=== PATIENT | female | born 2000 | race American Indian/Alaskan Native ===

== ENCOUNTER 2018-11-09 13:59 | Outpatient (CLI) | payer MEDICAID, OTHER ==
[2018-11-09 14:19] VITALS: BP 110/62
[2018-11-09 14:27] LABS: Bacteria,Urine 1+ /HPF (Negative); Bilirubin,Urine NEG (Negative); Blood,Urine NEG (Negative); Color,Urine Yellow (Yellow); Mucus,Urine 2+ /HPF; Urobilinogen,Urine < 2.0 mg/dL (<2.0); WBC,Urine < 1.0 /HPF (0.0-6.0)
[2018-11-09 15:41] LABS: Amphetamine Screen,Urine PRESUMPTIVE NEGATIVE; Benzodiazepines Screen,Urine PRESUMPTIVE NEGATIVE; Cannabinoid Screen,Urine PRESUMPTIVE NEGATIVE; Cocaine Screen,Urine PRESUMPTIVE NEGATIVE; Methadone Screen,Urine PRESUMPTIVE NEGATIVE; Opiate Screen,Urine PRESUMPTIVE NEGATIVE
== END 2018-11-09 16:10 | disposition home or self-care (01) ==
LOC: TRG 13:59
PROVIDERS: ATTEND Obstetrics & Gynecology
DX: O47.02 False labor before 37 completed weeks of gestation, second trimester (principal); Z3A.27 27 weeks gestation of pregnancy
CPT/HCPCS: 59025; 80307; 81001

== ENCOUNTER 2019-01-23 13:43 | Inpatient (IN) | payer MEDICAID ==
[2019-01-23 14:52] LABS: Hemoglobin 9.7 gm/dl (10.1-14.3); Mean Corpuscular HGB Conc 33 % (30-34); Mean Corpuscular Volume 76 fl (79-97); Platelet Count 330 K/mm3 (140-440); Red Blood Count 3.81 M/mm3 (3.65-5.03); Red Cell Distribution Width 15.9 % (13.2-15.2)
[2019-01-23] MEDS ORDERED: AMPICILLIN 2 GM in NACL 0.9% 50 ML IV ONE (15:00)
[2019-01-23] MEDS ORDERED: AMPICILLIN/NS 2 GM/100 ML 2 GM/100 ML BAG IV ONE ×2 (15:00→15:54)
[2019-01-23] MEDS: LACTATED RINGERS 1,000 ML IV SCH ×2 (15:13→21:19)
[2019-01-23] MEDS: PITOCin/NS 30 UNIT/500ML 30 UNITS/500 ML BAG IV SCH ×4 (15:15→23:25)
[2019-01-23] MEDS ORDERED: MINERAL OIL PO PRN (15:54)
[2019-01-23] MEDS ORDERED: ZOFRAN IV PRN (15:54)
[2019-01-23] MEDS ORDERED: SUBLIMAZE IV PRN (15:54)
[2019-01-23] MEDS ORDERED: BRETHINE SUB-Q PRN (15:54)
[2019-01-23] MEDS ORDERED: NARCAN 0.4 MG/1 ML IV PRN (15:54)
[2019-01-23] MEDS ORDERED: BRETHINE IVP PRN (15:54)
[2019-01-23] MEDS ORDERED: PITOCin/NS 20 UNIT/1000ML DRIP 20 UNITS/1,000 ML BAG IV SCH (16:00)
[2019-01-23] MEDS: STADOL IV PRN ×2 (16:05→18:19)
[2019-01-23] MEDS ORDERED: AMPICILLIN/NS 1 GM/50 ML 1 GM/50 ML BAG IV SCH (19:56)
[2019-01-23] MEDS: AMPICILLIN/NS 1 GM/50 ML 1 GM/50 ML BAG IV SCH (20:16)
[2019-01-23] MEDS ORDERED: NARCAN 2 MG/2 ML IV PRN (21:29)
--- NOTE | 2019-01-23 21:30 | Anesthesia Consultation ---
Anesthesia Consult and Med Hx Date of service: 01/23/19 - Airway Anesthetic Teeth Evaluation: Good ROM Head & Neck: Adequate Mental/Hyoid Distance: Adequate Mallampati Class: Class II Intubation Access Assessment: Good - Pulmonary Exam CTA: Yes - Cardiac Exam Cardiac Exam: RRR - Pre-Operative Health Status ASA Pre-Surgery Classification: ASA2, Emergency Proposed Anesthetic Plan: Epidural - Pulmonary Hx Asthma: No COPD: No Hx Pneumonia: No - Cardiovascular System Hx Hypertension: No - Central Nervous System Hx Seizures: No Hx Psychiatric Problems: No - Endocrine Hx Renal Disease: No Hx End Stage Renal Disease: No Hx Hypothyroidism: No Hx Hyperthyroidism: No - Hematic Hx Anemia: No Hx Sickle Cell Disease: No - Other Systems Hx Alcohol Use: No
[2019-01-23] MEDS ORDERED: TYLENOL PO ONE (22:05)
--- NOTE | 2019-01-23 22:39 | History and Physical Report ---
History of Present Illness Date of examination: 01/23/19 Date of admission: 01/23/19 13:43 Chief complaint: my water broke History of present illness: Pt is a 18 year old primigravida CHANEL 02/05/19 at 38w1d who presents with c/o water leaking since 1244 pm. She reports irregular contractions and denies vaginal bleeding. She has had care at [facility] which she reports is uncomplicated but records are not available for review. Her GBS status is unknown. Past History Past Medical History: no pertinent history Past Surgical History: no surgical history Social history: no significant social history - Obstetrical History Expected Date of Delivery: 02/05/19 Actual Gestation: 38 Week(s) 1 Day(s) : 1 Medications and Allergies Allergies Allergy/AdvReac Type Severity Reaction Status Date / Time No Known Allergies Allergy Unverified 04/18/14 23:10 Home Medications Medication Instructions Recorded Confirmed Last Taken Type No Known Home Medications [No 11/09/18 11/09/18 Unknown History Reported Home Medications] Active Meds: Active Medications Butorphanol Tartrate (Stadol) 2 mg IV Q2H PRN PRN Reason: Pain , Severe (7-10) Last Admin: 01/23/19 18:19 Dose: 2 mg Documented by: Ephedrine Sulfate (Ephedrine Sulfate) 10 mg IV Q2M PRN PRN Reason: Hypotension Fentanyl (Sublimaze) 100 mcg IV Q2H PRN PRN Reason: Labor Pain Last Admin: 01/23/19 19:58 Dose: 100 mcg Documented by: Ampicillin Sodium (Ampicillin/Ns 1 Gm/50 Ml) 1 gm in 50 mls @ 100 mls/hr IV Q4H CUCA Last Admin: 01/23/19 20:16 Dose: 100 mls/hr Documented by: Lactated Ringer's (Lactated Ringers) 1,000 mls @ 125 mls/hr IV DIRECT CUAC Last Admin: 01/23/19 21:19 Dose: 1,200 mls/hr Documented by: Oxytocin/Sodium Chloride (Pitocin/Ns 30 Unit/500ml) 30 units in 500 mls @ 2 mls/hr IV TITR CUCA; Protocol Last Admin: 01/23/19 20:21 Dose: 14 ml/hr, 14 mls/hr Documented by: Oxytocin/Sodium Chloride (Pitocin/Ns 20 Unit/1000ml Drip) 20 units in 1,000 mls @ 125 mls/hr IV DIRECT CUCA Fentanyl/Bupivacaine/Sodium Chlor (Fentanyl-Bupiv 2 Mcg/Ml-0.125%) 200 mcg in 100 mls @ 12 mls/hr EPIDURAL TITR CUCA; Protocol Mineral Oil (Mineral Oil) 30 ml PO QHS PRN PRN Reason: Constipation Naloxone HCl (Narcan 2 Mg/2 Ml) 0.2 mg IV Q5M PRN PRN Reason: Respiratory sedation Ondansetron HCl (Zofran) 4 mg IV Q8H PRN PRN Reason: Nausea And Vomiting Sodium Chloride (Deep Sea) 2 spray NS QID CUCA Terbutaline Sulfate (Brethine) 0.25 mg SUB-Q ONCE PRN PRN Reason: Hyperstimulation/Hypertonicity Terbutaline Sulfate (Brethine) 0.25 mg IVP ONCE PRN PRN Reason: Hyperstimulation/Hypertonicity Review of Systems All systems: negative - Vital Signs Vital signs: Vital Signs Pulse BP 102 H 135/87 01/23/19 14:00 01/23/19 14:00 Temp Pulse Resp BP Pulse Ox 98.4 F 76 16 119/71 100 01/23/19 19:30 01/23/19 22:31 01/23/19 19:58 01/23/19 22:31 01/23/19 22:31 - Physical Exam Breasts: Positive: deferred Cardiovascular: Regular rate Lungs: Positive: Clear to auscultation Abdomen: Positive: soft (gravid ) Uterus: Positive: enlarged (gravid ) Extremities: Positive: normal - Obstetrical FHR: auscultation normal Uterine Contraction Monitor Mode: External Cervical Dilatation: 1.5 (per RN ) Results Result Diagrams: 01/23/19 14:39 Abnormal lab results 01/23/19 Range/Units 14:39 Hgb 9.7 L (10.1-14.3) gm/dl Hct 29.0 L (30.3-42.9) % MCV 76 L (79-97) fl MCH 25 L (28-32) pg RDW 15.9 H (13.2-15.2) % All other labs normal. Assessment and Plan A: IUP at 38w6d Premature rupture of membranes GBS unknown P: Admit to labor and delivery CBC, HIV, RPR, Type and Screen GBS prophylaxis Routine intrapartum care
[2019-01-23] MEDS: fentaNYL-BUPIV 2 MCG/ML-0.125% 200 MCG/100 ML BAG EPIDURAL SCH (22:46)
[2019-01-24] MEDS: AMPICILLIN/NS 1 GM/50 ML 1 GM/50 ML BAG IV SCH ×5 (00:50→16:58)
[2019-01-24] MEDS: fentaNYL-BUPIV 2 MCG/ML-0.125% 200 MCG/100 ML BAG EPIDURAL SCH ×2 (07:18→16:59)
--- NOTE | 2019-01-24 07:45 | Progress Note ---
Assessment and Plan A: IUP at 39 weeks Premature rupture of membranes GBS unknown P: Admit to labor and delivery Re initiate pitocin continue GBS prolphylaxis close monitor of maternal and status Subjective - Subjective Date of service: 01/24/19 Principal diagnosis: SROM at 38 weeks Patient reports: loss of fluid, movement normal, contractions, no new complaints, no vaginal bleeding Objective - Vital Signs Vital Signs: Vital Signs - 12hr 01/23/19 01/23/19 01/23/19 19:48 19:58 20:18 Pulse Rate 97 H 80 Respiratory 16 Rate Blood Pressure 141/96 148/87 O2 Sat by Pulse Oximetry 01/23/19 01/23/19 01/23/19 20:23 20:34 21:03 Pulse Rate 85 81 126 H Respiratory Rate Blood Pressure 138/72 138/95 207/96 O2 Sat by Pulse Oximetry 01/23/19 01/23/19 01/23/19 21:18 21:22 21:27 Pulse Rate 79 96 H 80 Respiratory Rate Blood Pressure 134/75 O2 Sat by Pulse 100 99 Oximetry 01/23/19 01/23/19 01/23/19 21:32 21:37 21:43 Pulse Rate 85 101 H 92 H Respiratory Rate Blood Pressure 131/75 O2 Sat by Pulse 98 100 98 Oximetry 01/23/19 01/23/19 01/23/19 21:48 21:49 21:51 Pulse Rate 93 H 93 H 101 H Respiratory Rate Blood Pressure 152/108 O2 Sat by Pulse 100 90 Oximetry 01/23/19 01/23/19 01/23/19 21:53 21:55 21:57 Pulse Rate 92 H 96 H 89 Respiratory Rate Blood Pressure 126/79 121/70 131/69 O2 Sat by Pulse Oximetry 01/23/19 01/23/19 01/23/19 21:59 22:00 22:01 Pulse Rate 87 67 84 Respiratory Rate Blood Pressure 140/77 119/74 O2 Sat by Pulse 99 Oximetry 01/23/19 01/23/19 01/23/19 22:03 22:05 22:06 Pulse Rate 77 88 81 Respiratory Rate Blood Pressure 117/62 130/63 119/60 O2 Sat by Pulse 99 Oximetry 01/23/19 01/23/19 01/23/19 22:08 22:10 22:11 Pulse Rate 77 86 83 Respiratory Rate Blood Pressure 121/60 124/65 O2 Sat by Pulse 99 Oximetry 01/23/19 01/23/19 01/23/19 22:16 22:19 22:21 Pulse Rate 81 81 79 Respiratory Rate Blood Pressure 117/57 118/60 O2 Sat by Pulse 100 99 Oximetry 01/23/19 01/23/19 01/23/19 22:22 22:25 22:26 Pulse Rate 80 79 Respiratory Rate Blood Pressure 122/66 117/72 O2 Sat by Pulse 98 Oximetry 01/23/19 01/23/19 01/23/19 22:27 22:29 22:31 Pulse Rate 78 81 76 Respiratory Rate Blood Pressure 132/70 124/77 119/71 O2 Sat by Pulse 100 Oximetry 01/23/19 01/23/19 01/23/19 22:35 22:36 22:39 Pulse Rate 77 80 74 Respiratory Rate Blood Pressure 122/75 134/72 132/73 O2 Sat by Pulse 99 Oximetry 01/23/19 01/23/19 01/23/19 22:41 22:43 22:45 Pulse Rate 76 81 Respiratory Rate Blood Pressure 136/67 136/65 123/79 O2 Sat by Pulse 100 Oximetry 01/23/19 01/23/19 01/23/19 22:46 22:47 22:48 Pulse Rate 75 79 81 Respiratory Rate Blood Pressure 139/73 138/78 O2 Sat by Pulse 98 Oximetry 01/23/19 01/23/19 01/23/19 22:51 22:53 22:56 Pulse Rate 81 65 80 Respiratory Rate Blood Pressure O2 Sat by Pulse 100 88 99 Oximetry 01/23/19 01/23/19 01/23/19 22:57 22:59 23:01 Pulse Rate 82 81 82 Respiratory Rate Blood Pressure 127/70 143/78 145/66 O2 Sat by Pulse 100 Oximetry 01/23/19 01/23/19 01/23/19 23:03 23:05 23:06 Pulse Rate 78 76 78 Respiratory Rate Blood Pressure 119/70 131/67 132/68 O2 Sat by Pulse 99 Oximetry 01/23/19 01/23/19 01/23/19 23:08 23:11 23:12 Pulse Rate 81 75 81 Respiratory Rate Blood Pressure 136/75 134/74 134/86 O2 Sat by Pulse 99 Oximetry 01/23/19 01/23/19 01/23/19 23:16 23:17 23:21 Pulse Rate 66 69 75 Respiratory Rate Blood Pressure 121/61 O2 Sat by Pulse 99 86 99 Oximetry 01/23/19 01/23/19 01/23/19 23:23 23:24 23:26 Pulse Rate 74 69 78 Respiratory Rate Blood Pressure 128/65 129/69 133/79 O2 Sat by Pulse 99 Oximetry 01/23/19 01/23/19 01/23/19 23:28 23:30 23:31 Pulse Rate 74 77 74 Respiratory Rate Blood Pressure 133/78 133/76 O2 Sat by Pulse 99 Oximetry 01/23/19 01/23/19 01/23/19 23:32 23:35 23:36 Pulse Rate 75 76 73 Respiratory Rate Blood Pressure 135/80 128/72 133/76 O2 Sat by Pulse 99 Oximetry 01/23/19 01/23/19 01/23/19 23:38 23:40 23:41 Pulse Rate 76 79 78 Respiratory Rate Blood Pressure 136/79 139/79 O2 Sat by Pulse 99 Oximetry 01/23/19 01/23/19 01/23/19 23:43 23:45 23:46 Pulse Rate 66 64 60 Respiratory Rate Blood Pressure 109/55 126/81 O2 Sat by Pulse 100 Oximetry 01/23/19 01/23/19 01/23/19 23:47 23:48 23:51 Pulse Rate 65 67 64 Respiratory Rate Blood Pressure 123/66 128/73 116/66 O2 Sat by Pulse 100 Oximetry 01/23/19 01/23/19 01/23/19 23:52 23:54 23:56 Pulse Rate 64 69 64 Respiratory Rate Blood Pressure 122/72 120/68 121/71 O2 Sat by Pulse 98 Oximetry 01/23/19 01/24/19 01/24/19 23:58 00:01 00:03 Pulse Rate 70 62 63 Respiratory Rate Blood Pressure 125/78 123/84 129/72 O2 Sat by Pulse 100 Oximetry 01/24/19 01/24/19 01/24/19 00:04 00:07 00:11 Pulse Rate 69 63 66 Respiratory Rate Blood Pressure 133/72 133/65 100/59 O2 Sat by Pulse 99 75 L Oximetry 01/24/19 01/24/19 01/24/19 00:12 00:13 00:17 Pulse Rate 61 58 L 72 Respiratory Rate Blood Pressure 88/58 O2 Sat by Pulse 100 100 Oximetry 01/24/19 01/24/19 01/24/19 00:19 00:20 00:22 Pulse Rate 81 77 76 Respiratory Rate Blood Pressure 107/60 110/57 113/61 O2 Sat by Pulse 100 Oximetry 01/24/19 01/24/19 01/24/19 00:24 00:26 00:27 Pulse Rate 78 76 82 Respiratory Rate Blood Pressure 118/58 115/70 O2 Sat by Pulse 100 Oximetry 01/24/19 01/24/19 01/24/19 00:29 00:30 00:32 Pulse Rate 79 83 81 Respiratory Rate Blood Pressure 121/61 121/63 115/61 O2 Sat by Pulse 100 Oximetry 01/24/19 01/24/19 01/24/19 00:35 00:37 00:38 Pulse Rate 85 85 88 Respiratory Rate Blood Pressure 132/60 115/67 114/66 O2 Sat by Pulse 100 Oximetry 01/24/19 01/24/19 01/24/19 00:40 00:42 00:45 Pulse Rate 82 93 H 88 Respiratory Rate Blood Pressure 121/64 123/58 129/62 O2 Sat by Pulse 100 Oximetry 01/24/19 01/24/19 01/24/19 00:46 00:47 00:49 Pulse Rate 79 89 88 Respiratory Rate Blood Pressure 127/63 123/58 O2 Sat by Pulse 100 Oximetry 01/24/19 01/24/19 01/24/19 00:51 00:52 00:54 Pulse Rate 94 H 90 97 H Respiratory Rate Blood Pressure 134/61 127/57 123/59 O2 Sat by Pulse 100 Oximetry 01/24/19 01/24/19 01/24/19 00:57 00:58 01:00 Pulse Rate 108 H 97 H 109 H Respiratory Rate Blood Pressure 126/59 123/57 124/58 O2 Sat by Pulse 100 Oximetry 01/24/19 01/24/19 01/24/19 01:02 01:03 01:07 Pulse Rate 102 H 118 H 106 H Respiratory Rate Blood Pressure O2 Sat by Pulse 100 82 L 100 Oximetry 01/24/19 01/24/19 01/24/19 01:09 01:11 01:12 Pulse Rate 109 H 99 H 106 H Respiratory Rate Blood Pressure 125/66 126/57 O2 Sat by Pulse 100 Oximetry 01/24/19 01/24/19 01/24/19 01:13 01:15 01:17 Pulse Rate 110 H 104 H 110 H Respiratory Rate Blood Pressure 114/57 100/54 95/59 O2 Sat by Pulse 98 Oximetry 01/24/19 01/24/19 01/24/19 01:19 01:21 01:22 Pulse Rate 104 H 105 H 104 H Respiratory Rate Blood Pressure 129/62 113/58 114/61 O2 Sat by Pulse 99 Oximetry 01/24/19 01/24/19 01/24/19 01:24 01:27 01:28 Pulse Rate 100 H 107 H 106 H Respiratory Rate Blood Pressure 120/69 113/61 113/58 O2 Sat by Pulse 100 Oximetry 01/24/19 01/24/19 01/24/19 01:30 01:32 01:34 Pulse Rate 96 H 106 H 102 H Respiratory Rate Blood Pressure 124/62 128/62 127/60 O2 Sat by Pulse 99 Oximetry 01/24/19 01/24/19 01/24/19 01:36 01:37 01:38 Pulse Rate 98 H 97 H 93 H Respiratory Rate Blood Pressure 122/58 124/60 O2 Sat by Pulse 100 Oximetry 01/24/19 01/24/19 01/24/19 01:40 01:42 01:44 Pulse Rate 102 H 98 H 95 H Respiratory Rate Blood Pressure 121/55 122/58 130/60 O2 Sat by Pulse 100 Oximetry 01/24/19 01/24/19 01/24/19 01:46 01:47 01:48 Pulse Rate 102 H 97 H 100 H Respiratory Rate Blood Pressure 123/58 132/60 O2 Sat by Pulse 100 Oximetry 01/24/19 01/24/19 01/24/19 01:50 01:52 01:55 Pulse Rate 96 H 95 H 100 H Respiratory Rate Blood Pressure 130/58 128/59 121/58 O2 Sat by Pulse 100 Oximetry 01/24/19 01/24/19 01/24/19 01:56 01:57 01:58 Pulse Rate 100 H 104 H 96 H Respiratory Rate Blood Pressure 122/58 121/60 O2 Sat by Pulse 100 Oximetry 01/24/19 01/24/19 01/24/19 02:00 02:02 02:04 Pulse Rate 96 H 101 H 94 H Respiratory Rate Blood Pressure 120/62 122/64 128/61 O2 Sat by Pulse 99 Oximetry 01/24/19 01/24/19 01/24/19 02:06 02:07 02:08 Pulse Rate 93 H 94 H 96 H Respiratory Rate Blood Pressure 126/60 125/59 O2 Sat by Pulse 100 Oximetry 01/24/19 01/24/19 01/24/19 02:10 02:12 02:14 Pulse Rate 112 H 98 H 98 H Respiratory Rate Blood Pressure 129/67 130/64 128/64 O2 Sat by Pulse 100 Oximetry 01/24/19 01/24/19 01/24/19 02:16 02:17 02:18 Pulse Rate 98 H 97 H 100 H Respiratory Rate Blood Pressure 131/65 126/59 O2 Sat by Pulse 100 Oximetry 01/24/19 01/24/19 01/24/19 02:20 02:22 02:24 Pulse Rate 90 96 H 93 H Respiratory Rate Blood Pressure 126/66 124/64 125/62 O2 Sat by Pulse 98 Oximetry 01/24/19 01/24/19 01/24/19 02:26 02:27 02:28 Pulse Rate 91 H 87 94 H Respiratory Rate Blood Pressure 127/63 132/66 O2 Sat by Pulse 99 Oximetry 01/24/19 01/24/19 01/24/19 02:30 02:32 02:35 Pulse Rate 96 H 94 H Respiratory Rate Blood Pressure 121/62 121/62 121/65 O2 Sat by Pulse 99 Oximetry 01/24/19 01/24/19 01/24/19 02:37 02:39 02:41 Pulse Rate 105 H 98 H 94 H Respiratory Rate Blood Pressure 122/69 120/69 125/65 O2 Sat by Pulse 99 Oximetry 01/24/19 01/24/19 01/24/19 02:42 02:44 02:46 Pulse Rate 88 90 95 H Respiratory Rate Blood Pressure 126/73 125/60 129/67 O2 Sat by Pulse 98 Oximetry 01/24/19 01/24/19 01/24/19 02:47 02:48 02:50 Pulse Rate 91 H 85 88 Respiratory Rate Blood Pressure 128/69 131/67 O2 Sat by Pulse 99 Oximetry 01/24/19 01/24/19 01/24/19 02:52 02:57 03:02 Pulse Rate 100 H 91 H 89 Respiratory Rate Blood Pressure O2 Sat by Pulse 99 98 98 Oximetry 01/24/19 01/24/19 01/24/19 03:07 03:08 03:12 Pulse Rate 84 87 87 Respiratory Rate Blood Pressure 123/67 O2 Sat by Pulse 98 98 Oximetry 01/24/19 01/24/19 01/24/19 03:17 03:22 03:27 Pulse Rate 91 H 89 88 Respiratory Rate Blood Pressure 121/66 O2 Sat by Pulse 98 99 98 Oximetry 01/24/19 01/24/19 01/24/19 03:32 03:37 03:42 Pulse Rate 89 92 H 87 Respiratory Rate Blood Pressure 133/72 O2 Sat by Pulse 98 98 98 Oximetry 01/24/19 01/24/19 01/24/19 03:47 03:52 03:54 Pulse Rate 86 89 92 H Respiratory Rate Blood Pressure 124/78 O2 Sat by Pulse 98 98 Oximetry 01/24/19 01/24/19 01/24/19 03:57 04:02 04:07 Pulse Rate 89 83 83 Respiratory Rate Blood Pressure 127/75 O2 Sat by Pulse 99 99 99 Oximetry 01/24/19 01/24/19 01/24/19 04:12 04:17 04:22 Pulse Rate 80 80 84 Respiratory Rate Blood Pressure 134/73 O2 Sat by Pulse 100 100 100 Oximetry 01/24/19 01/24/19 01/24/19 04:27 04:32 04:37 Pulse Rate 82 80 83 Respiratory Rate Blood Pressure 135/78 O2 Sat by Pulse 99 100 99 Oximetry 01/24/19 01/24/19 01/24/19 04:42 04:47 04:52 Pulse Rate 82 79 82 Respiratory Rate Blood Pressure O2 Sat by Pulse 99 100 100 Oximetry 01/24/19 01/24/19 01/24/19 04:53 04:57 05:02 Pulse Rate 81 87 82 Respiratory Rate Blood Pressure 137/81 O2 Sat by Pulse 100 100 Oximetry 01/24/19 01/24/19 01/24/19 05:07 05:09 05:12 Pulse Rate 85 82 83 Respiratory Rate Blood Pressure 137/82 O2 Sat by Pulse 100 99 Oximetry 01/24/19 01/24/19 01/24/19 05:17 05:22 05:27 Pulse Rate 85 83 83 Respiratory Rate Blood Pressure 135/82 O2 Sat by Pulse 100 100 100 Oximetry 01/24/19 01/24/1901/24/19 05:32 05:37 05:42 Pulse Rate 86 81 84 Respiratory Rate Blood Pressure 138/84 O2 Sat by Pulse 99 99 99 Oximetry 01/24/19 01/24/19 01/24/19 05:47 05:52 05:57 Pulse Rate 81 82 79 Respiratory Rate Blood Pressure 133/80 O2 Sat by Pulse 99 99 98 Oximetry 01/24/19 01/24/19 01/24/19 06:02 06:07 06:12 Pulse Rate 83 91 H 98 H Respiratory Rate Blood Pressure 122/72 O2 Sat by Pulse 99 98 99 Oximetry 01/24/19 01/24/19 01/24/19 06:17 06:22 06:27 Pulse Rate 80 97 H 89 Respiratory Rate Blood Pressure 120/69 O2 Sat by Pulse 99 100 99 Oximetry 01/24/19 01/24/19 01/24/19 06:32 06:37 06:42 Pulse Rate 91 H 92 H 89 Respiratory Rate Blood Pressure 125/74 O2 Sat by Pulse 100 100 100 Oximetry 01/24/19 01/24/19 01/24/19 06:47 06:52 06:57 Pulse Rate 95 H 87 93 H Respiratory Rate Blood Pressure 136/80 O2 Sat by Pulse 100 100 99 Oximetry 01/24/19 01/24/19 01/24/19 07:02 07:07 07:12 Pulse Rate 89 89 100 H Respiratory Rate Blood Pressure 126/77 O2 Sat by Pulse 99 100 100 Oximetry 01/24/19 01/24/19 01/24/19 07:17 07:22 07:27 Pulse Rate 90 83 90 Respiratory Rate Blood Pressure 137/81 O2 Sat by Pulse 99 100 100 Oximetry 01/24/19 01/24/19 07:32 07:37 Pulse Rate 86 91 H Respiratory Rate Blood Pressure 126/74 O2 Sat by Pulse 100 100 Oximetry - Exam Breasts: normal Cardiovascular: Regular rate, Normal S1 Lungs: Clear to auscultation, Normal air movement Abdomen: Present: normal appearance, soft, normal bowel sounds. Absent: distention, tenderness, guarding Uterus: Present: normal, firm, fundal height above umbilicus. Absent: bogginess, tenderness FHR: category 1 Cervical Dilatation: 2 Cervical Effacement Percentage: 50 - Labs Labs: Abnormal Labs 01/23/19 14:39 Hgb 9.7 L Hct 29.0 L MCV 76 L MCH 25 L RDW 15.9 H Laboratory Results - last 24 hr 01/23/19 01/23/19 14:39 14:39 WBC 9.2 RBC 3.81 Hgb 9.7 L Hct 29.0 L MCV 76 L MCH 25 L MCHC 33 RDW 15.9 H Plt Count 330 HIV 1&2 Antibody Rapid Non react HIV P24 Antigen Non react Blood Type O POSITIVE Antibody Screen Negative
[2019-01-24] MEDS: PITOCin/NS 30 UNIT/500ML 30 UNITS/500 ML BAG IV SCH (08:33)
[2019-01-24] MEDS ORDERED: DEEP SEA NS SCH (10:00)
[2019-01-24] MEDS ORDERED: MARCAINE 0.25% INFILTRATI ONE (13:17)
[2019-01-24] MEDS: LACTATED RINGERS 1,000 ML IV SCH (14:48)
[2019-01-24] MEDS ORDERED: TYLENOL PO ONE (17:11)
--- NOTE | 2019-01-24 19:07 | Event Note ---
Date: 01/24/19 Patient was reassessed and noted that cervix changed from 1/100/-2 to 2/80/high with coning of baby head. Patient has been vamsi q2-3 min without change. Discussed option with patient and she deires to proceed with primary csec.
[2019-01-24] MEDS ORDERED: PEPCID IV ONE (19:14)
[2019-01-24] MEDS ORDERED: BICITRA PO ONE (19:14)
[2019-01-24] MEDS ORDERED: REGLAN IV ONE (19:14)
[2019-01-24] MEDS ORDERED: CYTOTEC PR ONE (19:15)
[2019-01-24] MEDS ORDERED: XYLOCAINE 2%/ EPI 1:200,000 INFILTRATI ONE (19:21)
[2019-01-24] MEDS ORDERED: REGLAN ONE (19:22)
[2019-01-24] MEDS ORDERED: BICITRA ONE (19:22)
[2019-01-24] MEDS ORDERED: ZOFRAN ONE (19:25)
[2019-01-24] MEDS ORDERED: DEXMEDETOMIDINE IV ONE (19:25)
[2019-01-24] MEDS ORDERED: NACL 0.9% IR ONE (19:40)
[2019-01-24] MEDS ORDERED: WATER FOR IRRIG STERILE IR ONE (19:40)
[2019-01-24] MEDS ORDERED: LACTATED RINGERS 1,000 ML IV SCH (20:00)
[2019-01-24] MEDS ORDERED: PITOCin/NS 20 UNIT/1000ML DRIP 20 UNITS/1,000 ML BAG IV SCH (20:00)
[2019-01-24] MEDS ORDERED: ANCEF/STERILE WATER 2 GM/20 ML 2 GM/20 ML SYRINGE IV NR (20:00)
[2019-01-24] MEDS ORDERED: BENADRYL ONE (20:05)
[2019-01-24] MEDS ORDERED: TORADOL ONE (20:05)
[2019-01-24] MEDS ORDERED: DILAUDID ONE (20:36)
[2019-01-24] MEDS ORDERED: PHENERGAN PR PRN ×2 (20:37→20:51)
[2019-01-24] MEDS ORDERED: MILK OF MAGNESIA PO PRN (20:37)
[2019-01-24] MEDS ORDERED: TUCKS PAD TP PRN (20:37)
[2019-01-24] MEDS ORDERED: LANSINOH TP PRN (20:37)
[2019-01-24] MEDS ORDERED: MYLICON PO PRN (20:37)
[2019-01-24] MEDS ORDERED: SENOKOT PO PRN (20:37)
[2019-01-24] MEDS ORDERED: NARCAN 0.4 MG/1 ML IV PRN ×2 (20:37→20:51)
[2019-01-24] MEDS ORDERED: MORPHINE IV PRN (20:37)
[2019-01-24] MEDS ORDERED: TORADOL IV PRN (20:37)
--- NOTE | 2019-01-24 20:44 | Procedure Note ---
OB Delivery Note - Delivery Date of Delivery: 01/24/19 Surgeon: NADIA GARCES Estimated blood loss: other (400cc) - Vaginal Delivery presentation: vertex - Section Preop diagnosis: arrest of dilation, other (Failure to progress) Postop diagnosis: same section procedure: section Disposition: PACU Complications: none Narrative: see op note - Infant A at 1 minute: 8 at 5 minutes: 9 Infant Gender: Female
--- NOTE | 2019-01-24 20:49 | Operative Report ---
Operative Report Operative Report: PREOPERATIVE DIAGNOSES: 1. Intrauterine at term. 2. Arrest of dilation. 3. Failure of progress to labor POSTOPERATIVE DIAGNOSES: 1.-3 EGVENY PROCEDURE PERFORMED: Primary low-transverse section. ANESTHESIA: Epidural. ESTIMATED BLOOD LOSS: 400 mL. COMPLICATIONS: None. FINDINGS: Female infant in cephalic presentation, OP position, weight 5 pounds 14 ounces. Apgars were 8 at 1 minute and 9 at 5 minutes. Normal uterus, tubes, and ovaries were noted. INDICATIONS: The patient is a 18-year-old 1, para 0 female, who presented to labor and delivery with PROM and in early active labor at term. She is a patient of [facility]. Despite pitocin no change in cervix went from 1 to 2 and cervix began swelling. . The patient progressed to 8 cm, at which time, Pi tocin was started. . A decision was made to proceed with a primary low transverse section. The procedure was described to the patient in detail including possible risks of bleeding, infection, injury to surrounding organs, and possible need for further surgery. Informed consent was obtained prior to proceeding with the procedure. PROCEDURE NOTE: The patient was taken to the operating room where epidural anesthesia was found to be adequate. The patient was prepped and draped in the usual sterile fashion in the dorsal supine position with a left-tuttle tilt. A Pfannenstiel skin incision was made with the scalpel and carried through to the underlying layer of fascia using the Bovie. The fascia was incised in the midline and extended laterally using Starr scissors. Fidel clamps were used to elevate the superior aspect of the fascial incision, which was elevated, and the underlying rectus muscles were dissected off bluntly and using Starr scissors. Attention was then turned to the inferior aspect of the fascial incision, which in similar fashion was grasped with Fidel clamps, elevated, and the underlying rectus muscles were dissected off bluntly and using Starr scissors. The rectus muscles were dissected in the midline. The peritoneum was bluntly dissected, entered, and extended superiorly and inferiorly with good visualization of the bladder. The bladder blade was inserted. The vesicouterine peritoneum was identified with pickups and entered sharply using Metzenbaum scissors. This incision was extended laterally and the bladder flap was created digitally. The bladder blade was reinserted. The lower uterine segment was incised in a transverse fashion using the scalpel and extended using manual traction. Clear fluid was noted. The was subsequently delivered atraumatically. The nose and mouth were bulb suctioned. The cord was clamped and cut. The infant was subsequently handed to the awaiting nursery nurse. Next, cord blood was obtained per the patient's request for cord blood donation, which took several minutes to perform. Subsequent to the collection of this blood, the placenta was removed spontaneously intact with a 3-vessel cord noted. The uterus was exteriorized and cleared of all clots and debris. The uterine incision was repaired in 2 layers using 0 vicryl suture. Hemostasis was visualized. The uterus was returned to the abdomen. The pelvis was copiously irrigated. The uterine incision was reexamined and was noted to be hemostatic. The rectus muscles were reapproximated in the midline using 3-0 Vicryl. The fascia was closed with 0 PDS, the subcutaneous layer was closed with 3-0 plain gut, and the skin was closed with Abdirashid needle. Sponge, lap, and instrument counts were correct x2. The patient was stable at the completion of the procedure and was subsequently transferred to the recovery room in stable condition.
[2019-01-24] MEDS ORDERED: DILAUDID IV PRN ×2 (20:51)
[2019-01-24] MEDS ORDERED: PHENERGAN PO PRN (20:51)
[2019-01-24] MEDS ORDERED: ZOFRAN IV PRN (20:51)
--- NOTE | 2019-01-24 20:54 | Post Anesthesia Evaluation ---
- Post Anesthesia Evaluation Patient Participated: Yes Airway Patent: Yes Stable Respiratory Function: Yes Nausea/Vomiting: No Temp > 96.8F: Yes Pain Manageable: Yes Adequeate Hydration: Yes Anesthesia Complications: No Block Receding Appropriately: Yes Patient on Ventilator: No
--- NOTE | 2019-01-24 20:54 | Anesthesia Day of Surgery ---
Anesthesia Day of Surgery - Day of Surgery Patient Examined: Yes Patient H&P Reviewed: Yes Patient is NPO: Yes
[2019-01-24] MEDS ORDERED: SODIUM CHLORIDE FLUSH SYRINGE 10 ML IV NR (21:00)
[2019-01-24] MEDS ORDERED: FEOSOL PO SCH (21:00)
[2019-01-24] MEDS ORDERED: SODIUM CHLORIDE FLUSH SYRINGE 10 ML IV PRN (21:00)
[2019-01-24] MEDS: PITOCin/NS 20 UNIT/1000ML DRIP 20 UNITS/1,000 ML BAG IV SCH ×2 (21:23→21:24)
[2019-01-24] MEDS: MORPHINE IV PRN (23:01)
[2019-01-25 01:27] LABS: Basophils # (Auto) 0.1 K/mm3 (0.0-0.1); Basophils % (Auto) 0.6 % (0.0-1.8); Hematocrit 28.9 % (30.3-42.9); Hemoglobin 8.9 gm/dl (10.1-14.3); Lymphocytes # (Auto) 1.8 K/mm3 (1.2-5.4); Lymphocytes % (Auto) 11.7 % (13.4-35.0); Mean Corpuscular HGB Conc 31 % (30-34); Mean Corpuscular Volume 79 fl (79-97); Monocytes # (Auto) 0.7 K/mm3 (0.0-0.8); Monocytes % (Auto) 4.7 % (0.0-7.3); Red Blood Count 3.68 M/mm3 (3.65-5.03)
[2019-01-25] MEDS: TORADOL IV PRN ×2 (01:32→10:28)
[2019-01-25 02:56] LABS: Hepatitis B Surface Antigen Non-Reactive (Negative); Hepatitis C Virus Antibody Non-Reactive (NonReactive)
[2019-01-25 03:20] LABS: Mean Platelet Volume 8.9 fl (6-12); Platelet Count 289 K/mm3 (140-440)
[2019-01-25] MEDS: MORPHINE IV PRN (03:48)
[2019-01-25] MEDS: LACTATED RINGERS 1,000 ML IV SCH (03:50)
--- NOTE | 2019-01-25 08:33 | Progress Note ---
Assessment and Plan POD1 s/p primary LTCS Pain poorly controlled- administer pain meds as requested Acute on chronic anemia- ferrous sulfate supplementation Subjective - Subjective Date of service: 01/25/19 Principal diagnosis: SROM at 38 weeks Interval history: Pt is POD1 s/p primary LTCS for failure to progress with PROM >24 hour Patient reports: pain poorly controlled (Significant post-op abdominal pain) : doing well, nursing well, bottle feeding (both breast and bottle) Objective - Vital Signs Latest vital signs: Vital Signs Temp Pulse Resp BP BP Pulse Ox 01/25/19 06:35 18 01/25/19 04:47 99.5 F 85 20 144/91 98 01/25/19 03:48 18 01/25/19 01:32 18 01/24/19 23:05 98.1 F 71 19 145/89 01/24/19 23:01 19 01/24/19 22:00 98.2 F 76 16 139/84 98 01/24/19 21:45 75 17 130/80 99 01/24/19 21:30 74 15 127/80 99 01/24/19 21:15 78 15 133/81 99 01/24/19 21:00 77 16 132/81 100 01/24/19 20:55 78 16 126/77 99 01/24/19 20:52 98.7 F 81 16 124/77 98 01/24/19 19:07 92 H 100 01/24/19 19:02 87 99 01/24/19 18:57 92 H 100 01/24/19 18:52 89 100 01/24/19 18:47 93 H 99 01/24/19 18:42 94 H 100 01/24/19 18:37 84 127/70 99 01/24/19 18:32 84 99 01/24/19 18:27 91 H 99 01/24/19 18:22 95 H 100 01/24/19 18:17 91 H 99 01/24/19 18:12 93 H 99 01/24/19 18:07 84 99 01/24/19 18:02 89 99 01/24/19 17:57 92 H 99 01/24/19 17:52 88 100 01/24/19 17:47 88 99 01/24/19 17:42 83 100 01/24/19 17:37 90 136/78 100 01/24/19 17:32 88 98 01/24/19 17:27 84 100 01/24/19 17:24 100.3 F H 01/24/19 17:22 92 H 100 01/24/19 17:17 84 99 01/24/19 17:12 79 100 01/24/19 17:07 97 H 99 01/24/19 17:02 91 H 100 01/24/19 16:59 81 155/87 01/24/19 16:57 80 100 01/24/19 16:52 83 100 01/24/19 16:47 82 100 01/24/19 16:42 79 99 01/24/19 16:37 83 100 01/24/19 16:36 81 152/84 01/24/19 16:32 77 100 01/24/19 16:27 85 99 01/24/19 16:22 78 100 01/24/19 16:17 84 99 01/24/19 16:12 78 98 01/24/19 16:07 82 99 01/24/19 16:02 83 99 01/24/19 15:57 74 99 01/24/19 15:52 78 99 01/24/19 15:47 81 100 01/24/19 15:46 82 92 01/24/19 15:42 92 H 99 01/24/19 15:37 82 100 01/24/19 15:36 81 139/83 01/24/19 15:32 93 H 100 01/24/19 15:27 83 99 01/24/19 15:22 81 100 01/24/19 15:17 84 99 01/24/19 15:12 82 100 01/24/19 15:07 96 H 100 01/24/19 15:02 85 100 01/24/19 14:57 74 100 01/24/19 14:52 97 H 100 01/24/19 14:47 83 99 01/24/19 14:42 82 100 01/24/19 14:37 81 99 01/24/19 14:36 79 137/75 01/24/19 14:32 90 98 01/24/19 14:27 84 100 01/24/19 14:22 83 100 01/24/19 14:17 84 99 01/24/19 14:12 80 98 01/24/19 14:07 85 99 01/24/19 14:02 85 100 09/03/19 13:57 82 99 01/24/19 13:52 83 99 01/24/19 13:47 79 100 01/24/19 13:42 85 99 01/24/19 13:37 114 H 99 01/24/19 13:36 81 145/86 01/24/19 13:35 88 176/100 01/24/19 13:32 80 99 01/24/19 13:27 79 99 01/24/19 13:22 76 98 01/24/19 13:19 78 148/81 01/24/19 13:17 86 98 01/24/19 13:12 79 99 01/24/19 13:07 79 99 01/24/19 13:02 78 99 01/24/19 12:57 81 99 01/24/19 12:52 81 99 01/24/19 12:47 80 100 01/24/19 12:45 57 L 92 01/24/19 12:42 79 100 01/24/19 12:38 78 129/76 01/24/19 12:37 81 99 01/24/19 12:32 80 99 01/24/19 12:27 83 100 01/24/19 12:22 88 100 01/24/19 12:17 80 100 01/24/19 12:12 83 100 01/24/19 12:07 77 99 01/24/19 12:02 83 99 01/24/19 11:57 80 100 01/24/19 11:52 79 99 01/24/19 11:47 76 99 01/24/19 11:42 79 100 01/24/19 11:40 80 151/84 01/24/19 11:37 72 100 01/24/19 11:32 77 99 01/24/19 11:30 99.0 F 18 01/24/19 11:27 79 100 01/24/19 11:22 77 99 01/24/19 11:17 77 99 01/24/19 11:12 75 98 01/24/19 11:07 74 99 01/24/19 11:02 70 99 01/24/19 10:57 74 99 01/24/19 10:52 75 99 01/24/19 10:47 76 99 01/24/19 10:42 73 99 01/24/19 10:39 75 135/79 01/24/19 10:37 72 99 01/24/19 10:32 75 99 01/24/19 10:27 80 99 01/24/19 10:22 79 100 01/24/19 10:17 77 100 01/24/19 10:12 79 100 01/24/19 10:07 81 99 01/24/19 10:05 98.7 F 18 01/24/19 10:02 85 99 01/24/19 09:57 81 99 01/24/19 09:52 82 99 01/24/19 09:47 82 99 01/24/19 09:42 82 99 01/24/19 09:39 86 131/77 01/24/19 09:37 93 H 99 01/24/19 09:32 85 99 01/24/19 09:27 83 99 01/24/19 09:22 90 99 01/24/19 09:17 86 99 01/24/19 09:12 89 98 01/24/19 09:07 84 98 01/24/19 09:02 84 98 01/24/19 08:57 83 98 01/24/19 08:52 84 97 01/24/19 08:47 86 98 01/24/19 08:42 84 98 01/24/19 08:38 86 134/80 01/24/19 08:37 85 98 01/24/19 08:32 88 99 Intake and Output 01/24/19 01/25/19 01/25/19 23:59 07:59 15:59 Intake Total 1104.167 240 Output Total 260 800 400 Balance 844.167 -560 -400 Intake: IV 1104.167 PITOCin/NS 20 UNIT/1000ML 4.167 DRIP 20 units In 1,000 ml @ 250 mls/hr IV DIRECT [facility] Rx#:[id number] Oral 240 Output: Urine 260 800 400 Indwelling Catheter 800 400 Uretheral (Anderson) 100 Other: Total, Intake Amount 240 Total, Output Amount 800 400 Estimated Blood Loss 400 - Exam Breasts: Present: deferred Lungs: Present: Normal air movement Abdomen: Present: normal appearance, tenderness, guarding Uterus: Present: normal, firm, fundal height below umbilicus Extremities: Present: normal, other (SCDs on) Incision: Present: dressed - Labs Labs: Abnormal lab results 01/25/19 Range/Units 00:45 WBC 15.1 H (4.5-11.0) K/mm3 Hgb 8.9 L (10.1-14.3) gm/dl Hct 28.9 L (30.3-42.9) % MCH 24 L (28-32) pg RDW 16.0 H (13.2-15.2) % Lymph % (Auto) 11.7 L (13.4-35.0) % Seg Neutrophils % 83.0 H (40.0-70.0) % Seg Neutrophils # 12.6 H (1.8-7.7) K/mm3
[2019-01-25] MEDS: PERCOCET 5/325 PO PRN ×2 (09:03→17:01)
[2019-01-25] MEDS: FEOSOL PO SCH ×2 (10:34→21:48)
[2019-01-25] MEDS: PRENATAL VITAMIN PO SCH (10:34)
[2019-01-25] MEDS: IBUPROFEN PO PRN ×2 (12:38→19:29)
[2019-01-25] MEDS: NORCO 5/325 PO PRN ×2 (14:41→21:48)
[2019-01-25 17:28] LABS: Hematocrit 24.4 % (30.3-42.9); Hemoglobin 7.5 gm/dl (10.1-14.3)
[2019-01-25] MEDS ORDERED: BOOSTRIX IM ONE (20:38)
[2019-01-25] MEDS ORDERED: M-M-R II VACCINE SUB-Q ONE (20:38)
[2019-01-26] MEDS: IBUPROFEN PO PRN ×2 (01:13→07:58)
[2019-01-26] MEDS: PERCOCET 5/325 PO PRN ×2 (04:04→13:59)
[2019-01-26] MEDS: NORCO 5/325 PO PRN ×2 (07:58→18:28)
--- NOTE | 2019-01-26 08:44 | Progress Note ---
Assessment and Plan POD2 s/p primary LTCS Pain control improving- administer pain meds as requested Acute on chronic anemia- ferrous sulfate supplementation Discharge to home tomorrow Subjective - Subjective Date of service: 01/26/19 Principal diagnosis: section Interval history: Pt is POD2 s/p primary LTCS for failure to progress with PROM >24 hour Patient reports: appetite normal, voiding normally (some incontinence), flatus, pain poorly controlled (better than yesterday), ambulating normally : other (bili lights), bottle feeding (mostly bottle, some breast) Objective - Vital Signs Latest vital signs: Vital Signs Temp Pulse Resp BP BP Pulse Ox 01/26/19 08:26 97.6 F 75 20 131/80 01/26/19 04:04 18 01/26/19 01:13 18 01/25/19 21:48 18 01/25/19 19:30 98.8 F 69 18 118/68 01/25/19 19:29 18 01/25/19 16:35 97.6 F 75 18 142/91 100 01/25/19 14:41 14 01/25/19 12:39 97.6 F 87 18 129/87 98 Intake and Output 01/25/19 01/26/19 01/26/19 23:59 07:59 15:59 Intake Total 300 120 Balance 300 120 Intake: Oral 120 Intake, Free Water 300 Other: Total, Intake Amount 120 # Voids Void 1 - Exam Breasts: Present: normal Lungs: Present: Normal air movement Abdomen: Present: normal appearance, tenderness, guarding Uterus: Present: normal, firm, fundal height below umbilicus Extremities: Present: normal Incision: Present: normal, dry, intact - Labs Labs: Abnormal lab results 01/25/19 Range/Units 16:42 Hgb 7.5 L (10.1-14.3) gm/dl Hct 24.4 L (30.3-42.9) %
--- NOTE | 2019-01-26 08:46 | Discharge Summary ---
Providers - Providers Date of Admission: 01/23/19 13:43 Date of discharge: 01/27/19 Attending physician: SALOME MENA Primary care physician: DANIEL BONE MD Hospitalization Reason for admission: rupture of membranes Delivery: Procedure: primary low transverse Episiotomy: none Laceration: none Incision: normal, dry, intact Other procedures: none complications: none Discharge diagnosis: IUP at term delivered Hospital course: Pt presented with SROM. Diagnosed with failure to progress and ROM >24 hour. Primary was performed. Met discharge criteria on POD3. Condition at discharge: Good Disposition: DC-01 TO HOME OR SELFCARE Plan - Discharge Medications Prescriptions: Ferrous Sulfate [Feosol 325 MG tab] 325 mg PO BID #60 tablet Ibuprofen [Motrin] 600 mg PO Q8H PRN #30 tablet PRN Reason: Pain oxyCODONE /ACETAMINOPHEN [Percocet 5/325] 1 tab PO Q6HR PRN #30 tablet PRN Reason: Pain - Provider Discharge Summary Activity: routine, no sex for 6 weeks, no heavy lifting 4 weeks, no strenuous exercise Diet: routine Instructions: routine Additional instructions: [] Smoking cessation referral if applicable(refer to patient education folder for contact #) [] Refer to [facility] Booklet Call your doctor immediately for: * Fever > 100.5 * Heavy vaginal bleeding ( >1 pad per hour) * Severe persistent headache * Shortness of breath * Reddened, hot, painful area to leg or breast * Drainage or odor from incision. * Keep incision clean and dry at all times and follow doctor's instructions regarding bathing/showering - Follow up plan Follow up: PRIMARY CAREMD [Primary Care Provider] - 14 Days (Please call [facility] aides and assistants teacher to schedule visit for incision check in 2 weeks)
[2019-01-26] MEDS: PRENATAL VITAMIN PO SCH (11:27)
[2019-01-26] MEDS: FEOSOL PO SCH ×2 (11:27→22:00)
[2019-01-27] MEDS: PERCOCET 5/325 PO PRN ×3 (00:34→13:17)
[2019-01-27] MEDS: IBUPROFEN PO PRN ×2 (02:23→10:49)
[2019-01-27] MEDS: PRENATAL VITAMIN PO SCH (10:49)
[2019-01-27] MEDS: FEOSOL PO SCH (10:49)
[2019-01-27 15:47] VITALS: BP 136/83
== END 2019-01-27 16:15 | disposition home or self-care (01) | DRG 765 ==
LOC: LD 13:43 → APU 01-24 19:29 → OB 01-24 22:22
PROVIDERS: ADMIT Obstetrics & Gynecology; ATTEND Obstetrics & Gynecology
PROC: 10D00Z1 Extraction of Products of Conception, Low, Open Approach (ICD-10-PCS; principal; 2019-01-24)
PROC: 3E0234Z Introduction of Serum, Toxoid and Vaccine into Muscle, Percutaneous Approach (ICD-10-PCS; 2019-01-25)
DX: O42.12 Full-term premature rupture of membranes, onset of labor more than 24 hours following rupture (principal); D62 Acute posthemorrhagic anemia; O99.02 Anemia complicating childbirth; O62.0 Primary inadequate contractions; O62.1 Secondary uterine inertia; Z3A.38 38 weeks gestation of pregnancy; Z37.0 Single live birth; Z23 Encounter for immunization
CPT/HCPCS: 36415; 80074; 85014; 85018; 85025; 85027; 86592; 86762; 86850; 86900; 86901; 87806; G0378; J0290; J0595; J1170; J1200; J1885; J2270; J2405; J2590; J2765; J3010; J3105; J3490; J7120

== ENCOUNTER 2019-05-17 06:32 | Emergency (ER) | payer SELFPAY ==
[2019-05-17 06:45] VITALS: BP 116/80
[2019-05-17] MEDS ORDERED: BUDESONIDE 0.5 MG/2 ML NEBU IH ONE (08:30)
[2019-05-17 09:53] LABS: Bacteria,Urine 2+ /HPF (Negative); Bilirubin,Urine NEG (Negative); Blood,Urine MOD (Negative); Color,Urine Yellow (Yellow); Mucus,Urine FEW /HPF; Urobilinogen,Urine < 2.0 mg/dL (<2.0)
--- NOTE | 2019-05-17 11:08 | Emergency Department Report ---
ED General Adult HPI - General Chief complaint: Urogenital-Female Stated complaint: BACK PAIN,VAGINA PAIN HURT WHEN URINATING Source: patient Mode of arrival: Ambulatory Limitations: No Limitations - History of Present Illness Initial comments: 19 yo BF states that she has abdominal and back pain that started 3 days ago. She verbalizes that her only relief occurred after taking a Percocet pill last night. She further states that she is months and had a with complications. -: Gradual, days(s) (3) Location: back, abdomen Radiation: flank (bilateral) Severity scale (0 -10): 10 Improves with: medication (Percocet) Worsens with: movement Associated Symptoms: malaise Treatments Prior to Arrival: other - Related Data Previous Rx's Medication Instructions Recorded Last Taken Type Ferrous Sulfate [Feosol 325 MG tab] 325 mg PO BID #60 tablet 01/24/19 Unknown Rx Ibuprofen [Motrin] 600 mg PO Q8H PRN #30 tablet 01/24/19 Unknown Rx oxyCODONE /ACETAMINOPHEN [Percocet 1 tab PO Q6HR PRN #30 tablet 01/24/19 Unknown Rx 5/325] Ibuprofen [Motrin 600 MG tab] 1 tab PO QID PRN #15 05/17/19 Unknown Rx Ibuprofen [Motrin 600 MG tab] 600 mg PO Q8H PRN 7 Days #21 tablet 05/17/19 Unknown Rx cephALEXin [Keflex] 500 mg PO QID 10 Days #40 capsule 05/17/19 Unknown Rx oxyCODONE /ACETAMINOPHEN [Percocet 1 tab PO Q6HR PRN #10 tablet 05/17/19 Unknown Rx 5/325] oxyCODONE /ACETAMINOPHEN [Percocet 1 tab PO Q6HR PRN #10 tablet 05/17/19 Unknown Rx 5/325] Allergies Allergy/AdvReac Type Severity Reaction Status Date / Time No Known Allergies Allergy Unverified 04/18/14 23:10 ED Review of Systems ROS: Stated complaint: BACK PAIN,VAGINA PAIN HURT WHEN URINATING Other details as noted in HPI Comment: All other systems reviewed and negative Constitutional: see HPI Gastrointestinal: abdominal pain ED Past Medical Hx - Past Medical History Previous Medical History?: No Hx Hypertension: No Hx Congestive Heart Failure: No Hx Diabetes: No Hx Deep Vein Thrombosis: No Hx Renal Disease: No Hx Sickle Cell Disease: No Hx Seizures: No Hx Asthma: No Hx COPD: No Hx HIV: No - Surgical History Past Surgical History?: No - Social History Smoking Status: Current Every Day Smoker Substance Use Type: None - Medications Home Medications: Home Medications Medication Instructions Recorded Confirmed Last Taken Type Ferrous Sulfate [Feosol 325 MG tab] 325 mg PO BID #60 tablet 01/24/19 Unknown Rx Ibuprofen [Motrin] 600 mg PO Q8H PRN #30 tablet 01/24/19 Unknown Rx oxyCODONE /ACETAMINOPHEN [Percocet 1 tab PO Q6HR PRN #30 tablet 01/24/19 Unknown Rx 5/325] Ibuprofen [Motrin 600 MG tab] 1 tab PO QID PRN #15 05/17/19 Unknown Rx Ibuprofen [Motrin 600 MG tab] 600 mg PO Q8H PRN 7 Days #21 tablet 05/17/19 Unknown Rx cephALEXin [Keflex] 500 mg PO QID 10 Days #40 capsule 05/17/19 Unknown Rx oxyCODONE /ACETAMINOPHEN [Percocet 1 tab PO Q6HR PRN #10 tablet 05/17/19 U nknown Rx 5/325] oxyCODONE /ACETAMINOPHEN [Percocet 1 tab PO Q6HR PRN #10 tablet 05/17/19 Unknown Rx 5/325] ED Physical Exam - General Limitations: No Limitations General appearance: alert, in no apparent distress, anxious - Head Head exam: Present: atraumatic, normocephalic, normal inspection - Eye Eye exam: Present: normal appearance, PERRL, EOMI - ENT ENT exam: Present: normal exam, normal orophraynx, normal external ear exam - Neck Neck exam: Present: normal inspection, tenderness, full ROM - Respiratory Respiratory exam: Present: normal lung sounds bilaterally. Absent: respiratory distress, wheezes - Cardiovascular Cardiovascular Exam: Present: regular rate, normal rhythm, normal heart sounds - GI/Abdominal GI/Abdominal exam: Present: soft, tenderness (diffuse epigastric pain; tender upon palpation at RLQ,LLQ and suprapubic), normal bowel sounds, other (Post C- section scar present on the lower abdomen). Absent: distended - Rectal Rectal exam: Present: deferred - Extremities Exam Extremities exam: Present: normal inspection, full ROM, tenderness - Back Exam Back exam: Present: full ROM, CVA tenderness (R), CVA tenderness (L) ED Course Vital Signs 05/17/19 06:39 Temperature 98.7 F Pulse Rate 118 H Respiratory 20 Rate Blood Pressure 116/80 O2 Sat by Pulse 100 Oximetry ED Medical Decision Making - Medical Decision Making 19 yo BF states that she has abdominal and back pain that started 3 days ago. She verbalizes that her only relief occurred after taking a Percocet pill last night. She further states that she is months and had a with complications. Pt's labs are indicative pyelonephritis and she was treated in the ER with Toradol, Ceftriaxone, Morphine, and Zofran. Pt was discharged with Ibuprofen, Percocet and Keflex. She was instructed to flu with her PCP in 2-3 days and return to ER as needed. Critical care attestation.: If time is entered above; I have spent that time in minutes in the direct care of this critically ill patient, excluding procedure time. ED Disposition Clinical Impression: Pyelonephritis Disposition: DC- TO HOME OR SELFCARE Is pt being admited?: No Does the pt Need Aspirin: No Condition: Stable Instructions: Urinary Tract Infection in Women (ED) Additional Instructions: Pt was discharged with Ibuprofen, Percocet and Keflex. Pt was instructed to not drink drive or operate heavy equipment while using Percocet. She was instructed to flu with her PCP in 2-3 days and return to ER as needed. Prescriptions: cephALEXin [Keflex] 500 mg PO QID 10 Days #40 capsule Ibuprofen [Motrin 600 MG tab] 1 tab PO QID PRN #15 PRN Reason: Pain , Severe (7-10) Ibuprofen [Motrin 600 MG tab] 600 mg PO Q8H PRN 7 Days #21 tablet PRN Reason: Pain oxyCODONE /ACETAMINOPHEN [Percocet 5/325] 1 tab PO Q6HR PRN #10 tablet PRN Reason: Pain oxyCODONE /ACETAMINOPHEN [Percocet 5/325] 1 tab PO Q6HR PRN #10 tablet PRN Reason: Pain Referrals: PRIMARY CARE,MD [Primary Care Provider] - 3-5 Days
[2019-05-17] MEDS ORDERED: LIDOCAINE-MPF (1%) 10 MG/1 ML VIAL 5 ML INFILTRATI ONE (11:33)
[2019-05-17] MEDS ORDERED: cefTRIAXone/NS 2 GM/100 ML 2 GM/100 ML BAG IV ONE (11:46)
[2019-05-17] MEDS ORDERED: ONDANSETRON 4 MG/2 ML INJ IV ONE (12:30)
[2019-05-17] MEDS ORDERED: KETOROLAC 30 MG/1 ML INJ IV ONE (12:30)
[2019-05-17] MEDS ORDERED: MORPHINE 4 MG/1 ML INJ IV ONE (12:30)
--- NOTE | 2019-05-17 12:34 | Event Note ---
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 I evaluated Ms. Gill [id number]. Symptoms began with dysuria then progressed to lower back pain, severe. PYURIA with bacteria in urine. Clinical diagnosis acute pyonephritis. She was treated with IV ceftriaxone in the emergency department. I recommended Percocet ibuprofen cephalexin for discharge prescriptions.
[2019-05-17] MEDS ORDERED: IPRATROPIUM/ALBUTEROL SULFATE 3 ML AMPUL.NEB IH ONE (18:08)
== END 2019-05-17 13:00 | disposition home or self-care (01) ==
LOC: ED 06:32
DX: N12 Tubulo-interstitial nephritis, not specified as acute or chronic (principal); F17.200 Nicotine dependence, unspecified, uncomplicated; Z79.899 Other long term (current) drug therapy
CPT/HCPCS: 81001; 96365; 96375; 99283; J0696; J1885; J2270; J2405

== ENCOUNTER 2020-01-23 14:07 | Emergency (ER) | payer MEDICAID ==
[2020-01-23 14:17] VITALS: BP 146/74
[2020-01-23] MEDS ORDERED: HYDROcodone/ACETAMINOPHEN 5-325 MG TAB PO ONE (14:38)
--- NOTE | 2020-01-23 15:43 | Cat Scan Report ---
CT FACE HISTORY: Trauma COMPARISON: None. TECHNIQUE: Axial images of the face were obtained. Sagittal and coronal reformats were generated. All CT scans at this location are performed using CT dose reduction for ALARA by means of automated expo sure control. CONTRAST: None. FINDINGS: Soft tissue hematoma is seen in the left cheek. Facial bones: Midface: Nasal bones and perpendicular plate of ethmoid are normal. No soft tissue swelling along trina al septal cartilage. Bony orbit: No fracture Zygomaxillary complex: No fracture Mandible: No Fracture Paranasal sinuses: Mucosal thickening in the maxillary sinuses and in some ethmoid air cells; no air- fluid level Orbits: Soft tissue hematoma extending into the left lower eyelid; orbital space and the subperiostea l orbital spaces are normal. Additional findings: None. IMPRESSION: Soft tissue hematoma in the left cheek extending towards the left lower eyelid No Fracture in the facial bones Signer Name: Yao Peter MD Signed: 01/23/2020 3:39 PM Workstation Name: [id number]
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
== END 2020-01-23 16:07 | disposition home or self-care (01) ==
LOC: ED 14:07
DX: S00.12XA Contusion of left eyelid and periocular area, initial encounter (principal); F17.200 Nicotine dependence, unspecified, uncomplicated; Z79.899 Other long term (current) drug therapy; Y04.2XXA Assault by strike against or bumped into by another person, initial encounter; Y93.89 Activity, other specified; Y92.89 Other specified places as the place of occurrence of the external cause; Y99.8 Other external cause status
CPT/HCPCS: 70486; 99283

== ENCOUNTER 2020-07-13 19:22 | Emergency (ER) | payer MEDICAID ==
--- NOTE | 2020-07-13 19:55 | Event Note ---
ED Screening Note ED Screening Note: Continue Lithuanian female with emerge department complaining of a 2-year history of waxing waning abdominal pain which she thinks is secondary to a that she had in 2019. 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 Fairbanks sometime ago and that nothing was done so she presents emergency department today complaining that she has been having continued bouts and a reemergence of pain about 2 weeks ago pain is dull and throbbing cramping primarily in the lower quadrant/pubic area but radiates across the entire abdomen. Still tolerates meals she reports no dysuria no hematuria no hematemesis hematochezia no constipation This initial assessment/diagnostic orders/clinical plan/treatment(s) is/are subject to change based on patients health status, clinical progression and re- assessment by fellow clinical providers in the ED. Further treatment and workup at subsequent clinical providers discretion. Patient/guardian urged not to elope from the ED as their condition may be serious if not clinically assessed and managed. Initial orders include: labs
[2020-07-13 20:16] LABS: Basophils # (Auto) 0.1 K/mm3 (0.0-0.1); Basophils % (Auto) 1.3 % (0.0-1.8); Eosinophils # (Auto) 0.3 K/mm3 (0.0-0.4); Eosinophils % (Auto) 4.1 % (0.0-4.3); Hematocrit 37.4 % (30.3-42.9); Hemoglobin 11.9 gm/dl (10.1-14.3); Lymphocytes # (Auto) 2.2 K/mm3 (1.2-5.4); Lymphocytes % (Auto) 32.7 % (13.4-35.0); Mean Corpuscular HGB Conc 32 % (30-34); Mean Corpuscular Volume 80 fl (79-97); Monocytes # (Auto) 0.4 K/mm3 (0.0-0.8); Monocytes % (Auto) 5.8 % (0.0-7.3); Platelet Count 231 K/mm3 (140-440); Red Blood Count 4.67 M/mm3 (3.65-5.03); Red Cell Distribution Width 17.4 % (13.2-15.2)
[2020-07-13 20:20] LABS: Bilirubin,Urine NEG (Negative); Blood,Urine NEG (Negative); Color,Urine Yellow (Yellow); Mucus,Urine 3+ /HPF; Urobilinogen,Urine < 2.0 mg/dL (<2.0)
[2020-07-13] MEDS ORDERED: MORPHINE 4 MG/1 ML INJ IV ONE ×2 (20:23→21:58)
[2020-07-13] MEDS ORDERED: SODIUM CHLORIDE 0.9% 1000 ML 1,000 ML IV ONE (20:23)
--- NOTE | 2020-07-13 20:23 | Emergency Department Report ---
HPI - General Chief Complaint: Abdominal Pain Time Seen by Provider: 07/13/20 20:05 - HPI HPI: This is a 20-year-old -Mosoth[place] female presents to the emergency department with complaint of lower abdominal and pelvic pain been going on for the past 2 weeks. Overall the patient says that she gets this pain intermittently since having a for her daughter in [address] Fairbanks. Patient is not currently on her menstrual cycle but says that when she is on her period that she gets increased pain, heavy vaginal bleeding and clots. She denies any dysuria but does say that she gets recurrent urinary tract infections. She denies any vaginal discharge, fever, nausea, vomiting. The patient says that the abdominal pain is currently 7 out of 10 in intensity and radiates towards the back. No known alleviating factors. No recent travel or sick contacts at home. ED Past Medical Hx - Past Medical History Previous Medical History?: Yes Hx Hypertension: No Hx Congestive Heart Failure: No Hx Diabetes: No Hx Deep Vein Thrombosis: No Hx Renal Disease: No Hx Sickle Cell Disease: No Hx Seizures: No Hx Asthma: No Hx COPD: No Hx HIV: No - Surgical History Past Surgical History?: Yes Additional Surgical History: 01/24/19 - Social History Smoking Status: Current Every Day Smoker Substance Use Type: None - Medications Home Medications: Home Medications Medication Instructions Recorded Confirmed Last Taken Type Ferrous Sulfate [Feosol 325 MG tab] 325 mg PO BID #60 tablet 01/24/19 Unknown Rx oxyCODONE /ACETAMINOPHEN [Percocet 1 tab PO Q6HR PRN #30 tablet 01/24/19 Unknown Rx 5/325] Ibuprofen [Motrin 600 MG tab] 1 tab PO QID PRN #15 05/17/19 Unknown Rx Ibuprofen [Motrin 600 MG tab] 600 mg PO Q8H PRN 7 Days #21 tablet 05/17/19 Unknown Rx cephALEXin [Keflex] 500 mg PO QID 10 Days #40 capsule 05/17/19 Unknown Rx oxyCODONE /ACETAMINOPHEN [Percocet 1 tab PO Q6HR PRN #10 tablet 05/17/19 Unknown Rx 5/325] oxyCODONE /ACETAMINOPHEN [Percocet 1 tab PO Q6HR PRN #10 tablet 05/17/19 Unknown Rx 5/325] Fluconazole (Nf) [Diflucan TAB] 150 mg PO ONCE #1 tablet 04/30/20 Unknown Rx HYDROcodone/APAP 5-325 [Wallace 1 each PO Q4HR PRN #12 tablet 09/21/19 Unknown Rx 5/325] Sulfamethoxazole/Trimethoprim 1 each PO BID #14 tablet 09/21/19 Unknown Rx [Bactrim DS TAB] Valacyclovir HCl [Valtrex] 1,000 mg PO BID #14 tablet 09/21/19 Unknown Rx metroNIDAZOLE [Flagyl] 500 mg PO Q12HR #14 tab 09/21/19 Unknown Rx Erythromycin [Erythromycin Ophth 1 applicatio OS QID 7 Days #1 tube 01/23/20 Unknown Rx Oint] HYDROcodone/APAP 5-325 [Wallace 1 each PO Q6HR PRN #10 tablet 01/23/20 Unknown Rx 5/325] Ibuprofen [Motrin 600 MG tab] 600 mg PO Q8H PRN #14 tablet 01/23/20 Unknown Rx HYDROcodone/APAP 5-325 [Wallace 1 each PO Q6HR PRN #12 tablet 07/13/20 Unknown Rx 5/325] ED Review of Systems ROS: Stated complaint: ABD PAIN/PAINFUL INCISION Other details as noted in HPI Comment: All other systems reviewed and negative Constitutional: denies: chills, fever Eyes: denies: eye pain, vision change ENT: denies: ear pain, throat pain Respiratory: denies: cough, shortness of breath Cardiovascular: denies: chest pain, palpitations Gastrointestinal: abdominal pain. denies: nausea, vomiting Genitourinary: denies: dysuria, discharge Musculoskeletal: denies: joint swelling, arthralgia Skin: denies: rash, lesions Neurological: denies: headache, weakness Physical Exam - Physical Exam Vital Signs: Vital Signs 07/13/20 07/13/20 07/13/20 19:44 20:13 20:14 Temperature 98.4 F Pulse Rate 91 H 99 H Respiratory 18 18 18 Rate Blood Pressure 145/96 Blood Pressure 149/77 [Left] O2 Sat by Pulse 100 100 100 Oximetry Physical Exam: GENERAL: The patient is well-developed well-nourished. HENT: Normocephalic. Atraumatic. Patient has moist mucous membranes. EYES: Extraocular motions are intact. NECK: Supple. Trachea is midline. CHEST/LUNGS: Clear to auscultation. There is no respiratory distress noted. HEART/CARDIOVASCULAR: Regular. There is no tachycardia. There is no murmur. ABDOMEN: Abdomen is soft. Generalized abdominal tenderness to palpation with lower quadrants greater than upper quadrants. No guarding. Patient has normal bowel sounds. There is no abdominal distention. SKIN: Skin is warm and dry. NEURO: The patient is awake, alert, and oriented. The patient is cooperative. The patient has no focal neurologic deficits. Normal speech. MUSCULOSKELETAL: There is no tenderness or deformity. There is no limitation range of motion. ED Course Vital Signs 07/13/20 07/13/20 07/13/20 19:44 20:13 20:14 Temperature 98.4 F Pulse Rate 91 H 99 H Respiratory 18 18 18 Rate Blood Pressure 145/96 Blood Pressure 149/77 [Left] O2 Sat by Pulse 100 100 100 Oximetry ED Medical Decision Making - Lab Data Result diagrams: 07/13/20 20:01 07/13/20 20:01 Lab Results 07/13/20 07/13/20 07/13/20 Range/Units 20:01 20:01 20:01 WBC 6.7 (4.5-11.0) K/mm3 RBC 4.67 (3.65-5.03) M/mm3 Hgb 11.9 (10.1-14.3) gm/dl Hct 37.4 (30.3-42.9) % MCV 80 (79-97) fl MCH 26 L (28-32) pg MCHC 32 (30-34) % RDW 17.4 H (13.2-15.2) % Plt Count 231 (140-440) K/mm3 Lymph % (Auto) 32.7 (13.4-35.0) % [place]tero % (Auto) 5.8 (0.0-7.3) % Eos % (Auto) 4.1 (0.0-4.3) % Baso % (Auto) 1.3 (0.0-1.8) % Lymph # (Auto) 2.2 (1.2-5.4) K/mm3 [place]o # (Auto) 0.4 (0.0-0.8) K/mm3 Eos # (Auto) 0.3 (0.0-0.4) K/mm3 Baso # (Auto) 0.1 (0.0-0.1) K/mm3 Seg Neutrophils % 56.1 (40.0-70.0) % Seg Neutrophils # 3.8 (1.8-7.7) K/mm3 Sodium 136 L (137-145) mmol/L Potassium 4.5 (3.6-5.0) mmol/L Chloride 101.4 (98-107) mmol/L Carbon Dioxide 23 (22-30) mmol/L Anion Gap 16 mmol/L BUN 10 (7-17) mg/dL Creatinine 0.7 (0.6-1.2) mg/dL Estimated GFR > 60 ml/min BUN/Creatinine Ratio 14 % Glucose 85 (65-100) mg/dL Calcium 9.9 (8.4-10.2) mg/dL Total Bilirubin 0.50 (0.1-1.2) mg/dL Direct Bilirubin < 0.2 (0-0.2) mg/dL Indirect Bilirubin 0.3 mg/dL AST 18 (5-40) units/L ALT 11 (7-56) units/L Alkaline Phosphatase 81 (35-129) units/L Total Protein 7.7 (6.3-8.2) g/dL Albumin 4.6 (3.9-5) g/dL Albumin/Globulin Ratio 1.5 % Lipase 15 (13-60) units/L HCG, Qual Negative (Negative) Urine Color (Yellow) Urine Turbidity (Clear) Urine pH (5.0-7.0) Ur Specific [place] (1.003-1.030) Urine Protein (Negative) mg/dL Urine Glucose (UA) (Negative) mg/dL Urine Ketones (Negative) mg/dL Urine Blood (Negative) Urine Nitrite (Negative) Urine Bilirubin (Negative) Urine Urobilinogen (<2.0) mg/dL Ur Leukocyte Esterase (Negative) Urine WBC (Auto) (0.0-6.0) /HPF Urine RBC (Auto) (0.0-6.0) /HPF U Epithel Cells (Auto) (0-13.0) /HPF Urine Mucus /HPF 07/13/ Range/Units Unknown WBC (4.5-11.0) K/mm3 RBC (3.65-5.03) M/mm3 Hgb (10.1-14.3) gm/dl Hct (30.3-42.9) % MCV (79-97) fl MCH (28-32) pg MCHC (30-34) % RDW (13.2-15.2) % Plt Count (140-440) K/mm3 Lymph % (Auto) (13.4-35.0) % [place] % (Auto) (0.0-7.3) % Eos % (Auto) (0.0-4.3) % Baso % (Auto) (0.0-1.8) % Lymph # (Auto) (1.2-5.4) K/mm3 [place] # (Auto) (0.0-0.8) K/mm3 Eos # (Auto) (0.0-0.4) K/mm3 Baso # (Auto) (0.0-0.1) K/mm3 Seg Neutrophils % (40.0-70.0) % Seg Neutrophils # (1.8-7.7) K/mm3 Sodium (137-145) mmol/L Potassium (3.6-5.0) mmol/L Chloride (98-107) mmol/L Carbon Dioxide (22-30) mmol/L Anion Gap mmol/L BUN (7-17) mg/dL Creatinine (0.6-1.2) mg/dL Estimated GFR ml/min BUN/Creatinine Ratio % Glucose (65-100) mg/dL Calcium (8.4-10.2) mg/dL Total Bilirubin (0.1-1.2) mg/dL Direct Bilirubin (0-0.2) mg/dL Indirect Bilirubin mg/dL AST (5-40) units/L ALT (7-56) units/L Alkaline Phosphatase (35-129) units/L Total Protein (6.3-8.2) g/dL Albumin (3.9-5) g/dL Albumin/Globulin Ratio % Lipase (13-60) units/L HCG, Qual (Negative) Urine Color Yellow (Yellow) Urine Turbidity Slightly-cloudy (Clear) Urine pH 6.0 (5.0-7.0) Ur Specific [place] 1.024 (1.003-1.030) Urine Protein 30 mg/dl (Negative) mg/dL Urine Glucose (UA) Neg (Negative) mg/dL Urine Ketones 20 (Negative) mg/dL Urine Blood Neg (Negative) Urine Nitrite Neg (Negative) Urine Bilirubin Neg (Negative) Urine Urobilinogen < 2.0 (<2.0) mg/dL Ur Leukocyte Esterase Neg (Negative) Urine WBC (Auto) 1.0 (0.0-6.0) /HPF Urine RBC (Auto) 3.0 (0.0-6.0) /HPF U Epithel Cells (Auto) 9.0 (0-13.0) /HPF Urine Mucus 3+ /HPF - Radiology Data Radiology results: report reviewed, image reviewed interpreted by me: Abdominal x-ray shows nonspecific nonobstructive bowel gas. CT ABDOMEN AND PELVIS WITH CONTRAST INDICATION / CLINICAL INFORMATION: lower abdominal and pelvic pain. TECHNIQUE: Axial CT images were obtained through the abdomen and pelvis after 100 cc Omnipaque [address] scans at this location are performed using CT dose reduction for ALARA by means of automated exposure control. COMPARISON: None available. FINDINGS: LOWER CHEST: There is a small hiatal hernia LIVER: No significant abnormality. GALLBLADDER: No significant abnormality. BILE DUCTS: No significant abnormality. PANCREAS: No significant abnormality. SPLEEN: No significant abnormality. ADRENALS: No significant abnormality. RIGHT KIDNEY and URETER: No significant abnormality. LEFT KIDNEY and URETER: No significant abnormality. STOMACH and SMALL BOWEL: There is abnormal wall thickening in the duodenum and jejunum characteristic of an enteritis. COLON: No significant abnormality. APPENDIX: No significant abnormality. PERITONEUM: No free fluid. No free air. No fluid collection. LYMPH NODES: No significant adenopathy. AORTA and ARTERIES: No significant abnormality. IVC and VEINS: No significant abnormality. URINARY BLADDER: No significant abnormality. REPRODUCTIVE ORGANS: No significant abnormality. ADDITIONAL FINDINGS: None. SKELETAL SYSTEM: No acute abnormality. IMPRESSION: 1. There is abnormal wall thickening in the duodenum and jejunum characteristic of an enteritis. This could represent an infectious process. This could rep resent Crohn's disease. - Medical Decision Making This patient presents with a complaint of abdominal pain that has been going on for the past 2 weeks, but overall this has been a recurrent issue for this patient over the past 2 years. There is reproducible abdominal tenderness to palpation, but otherwise the abdomen is soft, nondistended and nontoxic in appearance. No peritoneal signs. Patient's labs have been unremarkable including CBC, metabolic panel, urinalysis , and the patient is not . Abdominal x-ray shows nonspecific nonobstructive bowel gas. CT scan of the abdomen and pelvis without IV contrast shows some thickened intestinal brandon of the duodenum and jejunum most consistent with enteritis, but could also show an inflammatory process such as Crohn's disease. Patient was given some IV fluid resuscitation, IV analgesia, and a dose of IV steroids. She was reevaluated multiple times over multiple hours and is feeling improved. Vital signs reassuring throughout her ED course including being afebrile. For all these reasons the patient appears safe for discharge home at this time. She has been instructed to follow-up with primary care and has been given outpatient referral for gastroenterology. She will return to the ER with any worsening of her symptoms or with any acute distress. Critical Care Time: No Critical care attestation.: If time is entered above; I have spent that time in minutes in the direct care of this critically ill patient, excluding procedure time. ED Disposition Clinical Impression: Enteritis Abdominal pain Qualifiers: Abdominal location: unspecified location Qualified Code(s): R10.9 - Unspecified abdominal pain Disposition: TO HOME OR SELFCARE Is pt being admited?: No Condition: Stable Instructions: Abdominal Pain, Adult, Abdominal Pain (ED) Additional Instructions: Please follow-up with a primary care physician in the next few days. I am giving you a referral for a local class a regional truck driver, Dr. Hargrove, to follow-up regarding your recurrent abdominal pain and the CT findings of inflamed small bowel. Please try to avoid eggs, garlic, lactose and alcohol. Please quit smoking. You have been prescribed a medication that is sedating and therefore should not be taken prior to driving, working, and responsible for children and in no way should be mixed with alcohol of any quantity. Return to the emergency department with any worsening of your symptoms, new or concerning symptoms not addressed during this current emergency department visit, or with any acute distress. Prescriptions: HYDROcodone/APAP 5-325 [Wallace 5/325] 1 each PO Q6HR PRN #12 tablet PRN Reason: Pain Referrals: PRIMARY CAREMD [Primary Care Provider] - 3-5 Days ZACKERY HARGROVE MD [Staff Physician] - 3-5 Days Time of Disposition: 22:38
[2020-07-13 20:32] LABS: Alanine Aminotransferase 11 units/L (7-56); Albumin 4.6 g/dL (3.9-5); Blood Urea Nitrogen 10 mg/dL (7-17); Calcium 9.9 mg/dL (8.4-10.2); Hemolysis Index 38
[2020-07-13 20:33] LABS: BUN/Creatinine Ratio 14; Bilirubin,Direct < 0.2 mg/dL (0-0.2)
--- NOTE | 2020-07-13 21:21 | XRay Report ---
ABDOMEN 2 VIEW 07/13/2020 8:58 PM INDICATION / CLINICAL INFORMATION: Abd pain. COMPARISON: None available. FINDINGS: TUBES / LINES: None. BOWEL GAS PATTERN: No significant abnormality. FREE AIR / EXTRALUMINAL GAS: None. ADDITIONAL FINDINGS: No significant additional findings. IMPRESSION: 1. No acute abnormality Signer Name: Anil Peñaloza MD Signed: 07/13/2020 9:17 PM Workstation Name: [id number]
[2020-07-13] MEDS ORDERED: ONDANSETRON 4 MG/2 ML INJ IV ONE (21:52)
--- NOTE | 2020-07-13 22:25 | Cat Scan Report ---
CT ABDOMEN AND PELVIS WITH CONTRAST INDICATION / CLINICAL INFORMATION: lower abdominal and pelvic pain. TECHNIQUE: Axial CT images were obtained through the abdomen and pelvis after 100 cc Omnipaque [address] scans at this location are performed using CT dose reduction for ALARA by means of automated exposure control. COMPARISON: None available. FINDINGS: LOWER CHEST: There is a small hiatal hernia LIVER: No significant abnormality. GALLBLADDER: No significant abnormality. BILE DUCTS: No significant abnormality. PANCREAS: No significant abnormality. SPLEEN: No significant abnormality. ADRENALS: No significant abnormality. RIGHT KIDNEY and URETER: No significant abnormality. LEFT KIDNEY and URETER: No significant abnormality. STOMACH and SMALL BOWEL: There is abnormal wall thickening in the duodenum and jejunum characteristic of an enteritis. COLON: No significant abnormality. APPENDIX: No significant abnormality. PERITONEUM: No free fluid. No free air. No fluid collection. LYMPH NODES: No significant adenopathy. AORTA and ARTERIES: No significant abnormality. IVC and VEINS: No significant abnormality. URINARY BLADDER: No significant abnormality. REPRODUCTIVE ORGANS: No significant abnormality. ADDITIONAL FINDINGS: None. SKELETAL SYSTEM: No acute abnormality. IMPRESSION: 1. There is abnormal wall thickening in the duodenum and jejunum characteristic of an enteritis. This could represent an infectious process. This could represent Crohn's disease. Signer Name: Anil Peñaloza MD Signed: 07/13/2020 10:21 PM Workstation Name: [id number]
[2020-07-13 22:29] VITALS: BP 147/91
[2020-07-13] MEDS ORDERED: dexAMETHasone 4 MG/ML VIAL IV ONE (22:35)
== END 2020-07-13 22:56 | disposition home or self-care (01) ==
LOC: ED 19:22
DX: K52.9 Noninfective gastroenteritis and colitis, unspecified (principal); R10.2 Pelvic and perineal pain; F17.200 Nicotine dependence, unspecified, uncomplicated; Z98.890 Other specified postprocedural states; Z79.1 Long term (current) use of non-steroidal anti-inflammatories (NSAID); Z79.899 Other long term (current) drug therapy
CPT/HCPCS: 36415; 74019; 74177; 80048; 80076; 81001; 83690; 84703; 85025; 96361; 96374; 96375; 96376; 99284; J1100; J2270; J2405; J7030; Q9967

== ENCOUNTER 2020-10-24 23:36 | Emergency (ER) | payer MEDICAID ==
[2020-10-25 00:46] VITALS: BP 126/65
[2020-10-25] MEDS ORDERED: ACETAMINOPHEN 325 MG TAB PO ONE (00:48)
[2020-10-25 03:06] LABS: Bacteria,Urine 1+ /HPF (Negative); Bilirubin,Urine NEG (Negative); Blood,Urine SM (Negative); Color,Urine Yellow (Yellow); Urobilinogen,Urine < 2.0 mg/dL (<2.0)
[2020-10-25] MEDS ORDERED: KETOROLAC 30 MG/1 ML INJ IV ONE (04:12)
[2020-10-25] MEDS ORDERED: ONDANSETRON 4 MG/2 ML INJ IV ONE (04:12)
[2020-10-25] MEDS ORDERED: SODIUM CHLORIDE 0.9% 1000 ML 1,000 ML IV ONE (04:12)
--- NOTE | 2020-10-25 04:42 | Emergency Department Report ---
ED Abdominal Pain HPI - General Chief Complaint: Urogenital-Female Stated Complaint: FEVER,HEADACHE AND BACK PAIN Time Seen by Provider: 10/25/20 04:12 Source: patient Mode of arrival: Ambulatory Limitations: No Limitations - History of Present Illness Initial Comments: Patient 20-year-old female who presents for bilateral flank pain radiating to lower back and abdomen x2 days. Patient denies fevers or chills there is intermittent nausea. Patient denies vaginal discharge there is however urinary frequency urgency and dysuria. no history of renal stones MD Complaint: abdominal pain, flank pain Severity scale (0 -10): 3 - Related Data Previous Rx's Medication Instructions Recorded Last Taken Type Ferrous Sulfate [Feosol 325 MG tab] 325 mg PO BID #60 tablet 01/24/19 Unknown Rx oxyCODONE /ACETAMINOPHEN [Percocet 1 tab PO Q6HR PRN #30 tablet 01/24/19 Unknown Rx 5/325] Ibuprofen [Motrin 600 MG tab] 1 tab PO QID PRN #15 05/17/19 Unknown Rx Ibuprofen [Motrin 600 MG tab] 600 mg PO Q8H PRN 7 Days #21 tablet 05/17/19 Unknown Rx cephALEXin [Keflex] 500 mg PO QID 10 Days #40 capsule 05/17/19 Unknown Rx oxyCODONE /ACETAMINOPHEN [Percocet 1 tab PO Q6HR PRN #10 tablet 05/17/19 Unknown Rx 5/325] oxyCODONE /ACETAMINOPHEN [Percocet 1 tab PO Q6HR PRN #10 tablet 05/17/19 Unknown Rx 5/325] Fluconazole (Nf) [Diflucan TAB] 150 mg PO ONCE #1 tablet 09/21/19 Unknown Rx HYDROcodone/APAP 5-325 [[place] 1 each PO Q4HR PRN #12 tablet 09/21/19 Unknown Rx 5/325] Sulfamethoxazole/Trimethoprim 1 each PO BID #14 tablet 09/21/19 Unknown Rx [Bactrim DS TAB] Valacyclovir HCl [Valtrex] 1,000 mg PO BID #14 tablet 09/21/19 Unknown Rx metroNIDAZOLE [Flagyl] 500 mg PO Q12HR #14 tab 09/21/19 Unknown Rx Erythromycin [Erythromycin Ophth 1 applicatio OS QID 7 Days #1 tube 01/23/20 Unknown Rx Oint] HYDROcodone/APAP 5-325 [[place] 1 each PO Q6HR PRN #10 tablet 01/23/20 Unknown Rx 5/325] Ibuprofen [Motrin 600 MG tab] 600 mg PO Q8H PRN #14 tablet 01/23/20 Unknown Rx HYDROcodone/APAP 5-325 [[place] 1 each PO Q6HR PRN #12 tablet 07/13/20 Unknown Rx 5/325] Fluconazole [Diflucan TAB] 200 mg PO ONCE #1 tablet 10/25/20 Unknown Rx Ibuprofen [Motrin 800 MG tab] 800 mg PO Q8HR PRN #30 tablet 10/25/20 Unknown Rx levoFLOXacin [Levaquin TAB] 500 mg PO QDAY #10 tablet 10/25/20 Unknown Rx Allergies Allergy/AdvReac Type Severity Reaction Status Date / Time No Known Allergies Allergy Unverified 09/21/19 06:30 ED Review of Systems ROS: Stated complaint: FEVER,HEADACHE AND BACK PAIN Other details as noted in HPI Constitutional: denies: chills, fever Eyes: denies: eye pain, eye discharge, vision change ENT: denies: ear pain, throat pain Respiratory: denies: cough, shortness of breath, wheezing Cardiovascular: denies: chest pain, palpitations Endocrine: no symptoms reported Gastrointestinal: abdominal pain, nausea. denies: vomiting, diarrhea, const ipation Genitourinary: frequency. denies: urgency, dysuria, hematuria, discharge Musculoskeletal: back pain Skin: denies: rash, lesions Neurological: headache. denies: weakness, paresthesias, abnormal gait, vertigo, other Psychiatric: as per HPI Hematological/Lymphatic: denies: easy bleeding, easy bruising ED Past Medical Hx - Past Medical History Previous Medical History?: No Hx Hypertension: No Hx Congestive Heart Failure: No Hx Diabetes: No Hx Deep Vein Thrombosis: No Hx Renal Disease: No Hx Sickle Cell Disease: No Hx Seizures: No Hx Asthma: No Hx COPD: No Hx HIV: No - Surgical History Past Surgical History?: Yes Additional Surgical History: 01/24/19 - Social History Smoking Status: Current Every Day Smoker Substance Use Type: None - Medications Home Medications: Home Medications Medication Instructions Recorded Confirmed Last Taken Type Ferrous Sulfate [Feosol 325 MG tab] 325 mg PO BID #60 tablet 01/24/19 Unknown Rx oxyCODONE /ACETAMINOPHEN [Percocet 1 tab PO Q6HR PRN #30 tablet 01/24/19 Unknown Rx 5/325] Ibuprofen [Motrin 600 MG tab] 1 tab PO QID PRN #15 05/17/19 Unknown Rx Ibuprofen [Motrin 600 MG tab] 600 mg PO Q8H PRN 7 Days #21 tablet 05/17/19 Unknown Rx cephALEXin [Keflex] 500 mg PO QID 10 Days #40 capsule 05/17/19 Unknown Rx oxyCODONE /ACETAMINOPHEN [Percocet 1 tab PO Q6HR PRN #10 tablet 05/17/19 Unknown Rx 5/325] oxyCODONE /ACETAMINOPHEN [Percocet 1 tab PO Q6HR PRN #10 tablet 05/17/19 Unknown Rx 5/325] Fluconazole (Nf) [Diflucan TAB] 150 mg PO ONCE #1 tablet 09/21/19 Unknown Rx HYDROcodone/APAP 5-325 [[place] 1 each PO Q4HR PRN #12 tablet 09/21/19 Unknown Rx 5/325] Sulfamethoxazole/Trimethoprim 1 each PO BID #14 tablet 09/21/19 Unknown Rx [Bactrim DS TAB] Valacyclovir HCl [Valtrex] 1,000 mg PO BID #14 tablet 09/21/19 Unknown Rx metroNIDAZOLE [Flagyl] 500 mg PO Q12HR #14 tab 09/21/19 Unknown Rx Erythromycin [Erythromycin Ophth 1 applicatio OS QID 7 Days #1 tube 01/23/20 Unknown Rx Oint] HYDROcodone/APAP 5-325 [[place] 1 each PO Q6HR PRN #10 tablet 01/23/20 Unknown Rx 5/325] Ibuprofen [Motrin 600 MG tab] 600 mg PO Q8H PRN #14 tablet 01/23/20 Unknown Rx HYDROcodone/APAP 5-325 [[place] 1 each PO Q6HR PRN #12 tablet 07/13/20 Unknown Rx 5/325] Fluconazole [Diflucan TAB] 200 mg PO ONCE #1 tablet 10/25/20 Unknown Rx Ibuprofen [Motrin 800 MG tab] 800 mg PO Q8HR PRN #30 tablet 10/25/20 Unknown Rx levoFLOXacin [Levaquin TAB] 500 mg PO QDAY #10 tablet 10/25/20 Unknown Rx ED Physical Exam - General Limitations: No Limitations General appearance: alert, in no apparent distress - Head Head exam: Present: atraumatic, normocephalic - Eye Eye exam: Present: normal appearance, PERRL, EOMI Pupils: Present: normal accommodation - ENT ENT exam: Present: normal exam, TM's normal bilaterally - Neck Neck exam: Present: normal inspection - Respiratory Respiratory exam: Present: normal lung sounds bilaterally. Absent: respiratory distress - Cardiovascular Cardiovascular Exam: Present: regular rate, normal rhythm, normal heart sounds. Absent: systolic murmur, diastolic murmur, rubs, gallop - GI/Abdominal GI/Abdominal exam: Present: soft. Absent: distended, tenderness, guarding, rebound, rigid, bruit, hernia - Rectal Rectal exam: Present: deferred - Extremities Exam Extremities exam: Present: normal inspection, full ROM. Absent: tenderness - Back Exam Back exam: Present: normal inspection, full ROM, CVA tenderness (L). Absent: tenderness, CVA tenderness (R) - Neurological Exam Neurological exam: Present: alert, oriented X3, CN II-XII intact, normal gait, reflexes normal - Psychiatric Psychiatric exam: Present: normal affect, normal mood - Skin Skin exam: Present: warm, dry, intact, normal color. Absent: rash ED Course Vital Signs 10/25/20 10/25/20 00:38 00:52 Temperature 102.2 F H Pulse Rate 112 H Respiratory 18 16 Rate Blood Pressure 126/65 O2 Sat by Pulse 99 Oximetry ED Medical Decision Making - Lab Data Result diagrams: 10/25/20 04:10 10/25/20 04:10 Labs 10/25/20 10/25/20 10/25/20 04:10 04:10 Unknown WBC 16.5 H RBC 4.11 Hgb 10.3 Hct 32.5 MCV 79 MCH 25 L MCHC 32 RDW 20.1 H Plt Count 287 Lymph % (Auto) 12.4 L [place] % (Auto) 7.6 H Eos % (Auto) 0.1 Baso % (Auto) 0.4 Lymph # (Auto) 2.1 [place] # (Auto) 1.3 H Eos # (Auto) 0.0 Baso # (Auto) 0.1 Seg Neutrophils % 79.5 H Seg Neutrophils # 13.1 H Sodium 132 L Potassium 3.1 L Chloride 96.9 L Carbon Dioxide 21 L Anion Gap 17 BUN 4 L Creatinine 0.7 Estimated GFR > 60 BUN/Creatinine Ratio 6 Glucose 102 H Calcium 8.9 Total Bilirubin 0.50 AST 13 ALT 9 Alkaline Phosphatase 77 Total Protein 7.9 Albumin 3.9 Albumin/Globulin Ratio 1.0 Urine Color Yellow Urine Turbidity Slightly-cloudy Urine pH 6.0 Ur Specific [place] 1.004 Urine Protein 30 mg/dl Urine Glucose (UA) Neg Urine Ketones Neg Urine Blood Sm Urine Nitrite Neg Urine Bilirubin Neg Urine Urobilinogen < 2.0 Ur Leukocyte Esterase Lg Urine WBC (Auto) 158.0 H Urine RBC (Auto) 20.0 U Epithel Cells (Auto) 2.0 Urine Bacteria (Auto) 1+ Urine Yeast (Budding) 1+ - Radiology Data Radiology results: report reviewed, image reviewed CT ABDOMEN PELVIS WITHOUT CONTRAST INDICATION / CLINICAL INFORMATION: Question possible Renal Stone(s) Unspecified abdominal pain.. TECHNIQUE: Axial CT images were obtained through the abdomen and pelvis without IV contrast. All CT scans at this location are performed using CT dose reduction for ALARA by means of automated exposure control. COMPARISON: 06/18/2019 FINDINGS: LOWER CHEST: No significant abnormality. LIVER: No significant abnormality. GALLBLADDER: No significant abnormality. BILE DUCTS: No significant abnormality. PANCREAS: No significant abnormality. SPLEEN: No significant abnormality. ADRENALS: No significant abnormality. RIGHT KIDNEY and URETER: No significant abnormality. LEFT KIDNEY and URETER: No significant abnormality. STOMACH and SMALL BOWEL: No significant abnormality. COLON: No significant abnormality. APPENDIX: No significant abnormality. PERITONEUM: No free fluid. No free air. No fluid collection. LYMPH NODES: No significant adenopathy. AORTA and ARTERIES: No significant abnormality. IVC and VEINS: No significant abnormality. URINARY BLADDER: No significant abnormality. REPRODUCTIVE ORGANS: No significant abnormality ADDITIONAL FINDINGS: None. SKELETAL SYSTEM: No significant abnormality. IMPRESSION: 1. No significant abnormality. Signer Name: Agustin Fisher MD Signed: 10/25/2020 5:11 AM Workstation Name: [id number] Transcribed By: LILLIANA Dictated By: Agustin Fisher MD Electronically Authenticated By: Agustin Fisher MD Signed Date/Time: 10/25/20510 DD/ 0509 TD/TT: - Medical Decision Making CT normal no mass no bleed no abnormality, labs noted above, patient denies vaginal discharge no concern for STI, there is no cough no shortness of breath no wheezing no suspicious contacts, no CVA tenderness however white count 16.5 UA with leukocytes bacteria, patient treated for UTI, CT abd and pelvis not consistent with pyelonephritis, or renal stones, pt tx'd with Rocephin 1 g IV piggyback, 1 L normal saline, pain relieved with ketoralac. patient is currently tolerating p.o. hydration and p.o. food intake without nausea vomiting. Patient advises she feels much better. She does not appear ill, or toxic, this is not likely sepsis, pt states ready to go home. Plan DC to home with prescriptions patient will follow-up with primary care doctor in 2 to 3 days, continue to hydrate as directed, will return to emergency should symptoms worsen. Critical care attestation.: If time is entered above; I have spent that time in minutes in the direct care of this critically ill patient, excluding procedure time. ED Disposition Clinical Impression: Dehydration, mild UTI (urinary tract infection) Qualifiers: Urinary tract infection type: acute cystitis Hematuria presence: without hematuria Qualified Code(s): N30.00 - Acute cystitis without hematuria Disposition: DC-01 TO HOME OR SELFCARE Is pt being admited?: No Does the pt Need Aspirin: No Condition: Stable Instructions: Dehydration, Adult, [id number], Rehydration, Adult, Urinary Tract Infection, Adult, [id number] Additional Instructions: Take medications as prescribed, hydrate as direct, follow up with primary care doctor in 2-3 days, Return to emergency if symptoms worsen or not improving. Prescriptions: Fluconazole [Diflucan TAB] 200 mg PO ONCE #1 tablet levoFLOXacin [Levaquin TAB] 500 mg PO QDAY #10 tablet Ibuprofen [Motrin 800 MG tab] 800 mg PO Q8HR PRN #30 tablet PRN Reason: pain fever Referrals: MELY WOMACK MD [Primary Care Provider] - 3-5 Days Forms: Work/School Release Form(ED) Time of Disposition: 06:14
[2020-10-25 04:49] LABS: Basophils # (Auto) 0.1 K/mm3 (0.0-0.1); Basophils % (Auto) 0.4 % (0.0-1.8); Eosinophils % (Auto) 0.1 % (0.0-4.3); Hematocrit 32.5 % (30.3-42.9); Hemoglobin 10.3 gm/dl (10.1-14.3); Lymphocytes # (Auto) 2.1 K/mm3 (1.2-5.4); Lymphocytes % (Auto) 12.4 % (13.4-35.0); Mean Corpuscular HGB Conc 32 % (30-34); Mean Corpuscular Volume 79 fl (79-97); Monocytes # (Auto) 1.3 K/mm3 (0.0-0.8); Monocytes % (Auto) 7.6 % (0.0-7.3); Platelet Count 287 K/mm3 (140-440); Red Blood Count 4.11 M/mm3 (3.65-5.03)
[2020-10-25 04:51] LABS: Red Cell Distribution Width 20.1 % (13.2-15.2)
[2020-10-25] MEDS ORDERED: ACETAMINOPHEN 500 MG TAB PO ONE (04:59)
[2020-10-25] MEDS ORDERED: LIDOCAINE-MPF (1%) 10 MG/1 ML VIAL 5 ML INFILTRATI ONE (04:59)
[2020-10-25 05:10] LABS: Alanine Aminotransferase 9 units/L (7-56); Albumin 3.9 g/dL (3.9-5); Blood Urea Nitrogen 4 mg/dL (7-17); Calcium 8.9 mg/dL (8.4-10.2); Hemolysis Index 2
[2020-10-25 05:12] LABS: BUN/Creatinine Ratio 6
--- NOTE | 2020-10-25 05:15 | Cat Scan Report ---
CT ABDOMEN PELVIS WITHOUT CONTRAST INDICATION / CLINICAL INFORMATION: Question possible Renal Stone(s) Unspecified abdominal pain.. TECHNIQUE: Axial CT images were obtained through the abdomen and pelvis without IV contrast. All CT scans at [facility] location are performed using CT dose reduction for ALARA by means of automated exposure control. COMPARISON: 06/18/2019 FINDINGS: LOWER CHEST: No significant abnormality. LIVER: No significant abnormality. GALLBLADDER: No significant abnormality. BILE DUCTS: No significant abnormality. PANCREAS: No significant abnormality. SPLEEN: No significant abnormality. ADRENALS: No significant abnormality. RIGHT KIDNEY and URETER: No significant abnormality. LEFT KIDNEY and URETER: No significant abnormality. STOMACH and SMALL BOWEL: No significant abnormality. COLON: No significant abnormality. APPENDIX: No significant abnormality. PERITONEUM: No free fluid. No free air. No fluid collection. LYMPH NODES: No significant adenopathy. AORTA and ARTERIES: No significant abnormality. IVC and VEINS: No significant abnormality. URINARY BLADDER: No significant abnormality. REPRODUCTIVE ORGANS: No significant abnormality ADDITIONAL FINDINGS: None. SKELETAL SYSTEM: No significant abnormality. IMPRESSION: 1. No significant abnormality. Signer Name: Agustin Fisher MD Signed: 10/25/2020 5:11 AM Workstation Name: [id number]
== END 2020-10-25 06:15 | disposition home or self-care (01) ==
LOC: ED 23:36
DX: N39.0 Urinary tract infection, site not specified (principal); E86.0 Dehydration; F17.200 Nicotine dependence, unspecified, uncomplicated; Z98.890 Other specified postprocedural states; Z79.899 Other long term (current) drug therapy
CPT/HCPCS: 36415; 74176; 80053; 81001; 85025; 96361; 96372; 96374; 96375; 99284; J0696; J1885; J2405; J7030

== ENCOUNTER 2021-02-07 13:04 | Emergency (ER) | payer MEDICAID ==
[2021-02-07 14:30] VITALS: BP 124/78
[2021-02-07] MEDS ORDERED: SODIUM CHLORIDE 0.9% 1000 ML 1,000 ML IV ONE (14:58)
[2021-02-07] MEDS ORDERED: ONDANSETRON 4 MG/2 ML INJ IV ONE (14:59)
[2021-02-07] MEDS ORDERED: MORPHINE 2 MG/1 ML INJ IV ONE (14:59)
--- NOTE | 2021-02-07 14:59 | Emergency Department Report ---
ED Abdominal Pain HPI - General Chief Complaint: Abdominal Pain Stated Complaint: STOMACH PAIN/BODY ACHE Time Seen by Provider: 02/07/21 14:34 Source: patient Mode of arrival: Ambulatory Limitations: No Limitations - History of Present Illness Initial Comments: 20-year-old female presents to the ER today with complaints of diffuse abdominal pain. She describes it as a burning pain. She states she has been taking her mother's Percocet for pain but she feels like the pain is getting worse this Percocet. She reports associated bloating. she denies any nausea or vomiting. She states that she had a normal bowel movement last night. She denies any UTI symptoms. She denies any abnormal vaginal bleeding or discharge. Last menstrual cycle was January 27 through February 02. She has never had any abdominal surgeries. She states that she does drink alcohol but only on weekends. She denies any tobacco or illicit drug use. She is not currently on control. She denies any significant past medical history. MD Complaint: abdominal pain -: week(s) (1) Severity scale (0 -10): 10 - Related Data Previous Rx's Medication Instructions Recorded Last Taken Type Ferrous Sulfate [Feosol 325 MG tab] 325 mg PO BID #60 tablet 01/24/19 Unknown Rx oxyCODONE /ACETAMINOPHEN [Percocet 1 tab PO Q6HR PRN #30 tablet 01/24/19 Unknown Rx 5/325] Ibuprofen [Motrin 600 MG tab] 1 tab PO QID PRN #15 05/17/19 Unknown Rx Ibuprofen [Motrin 600 MG tab] 600 mg PO Q8H PRN 7 Days #21 tablet 05/17/19 Unknown Rx cephALEXin [Keflex] 500 mg PO QID 10 Days #40 capsule 05/17/19 Unknown Rx oxyCODONE /ACETAMINOPHEN [Percocet 1 tab PO Q6HR PRN #10 tablet 05/17/19 Unknown Rx 5/325] oxyCODONE /ACETAMINOPHEN [Percocet 1 tab PO Q6HR PRN #10 tablet 05/17/19 Unknown Rx 5/325] Fluconazole (Nf) [Diflucan TAB] 150 mg PO ONCE #1 tablet 09/21/19 Unknown Rx HYDROcodone/APAP 5-325 [[place] 1 each PO Q4HR PRN #12 tablet 09/21/19 Unknown Rx 5/325] Sulfamethoxazole/Trimethoprim 1 each PO BID #14 tablet 09/21/19 Unknown Rx [Bactrim DS TAB] Valacyclovir HCl [Valtrex] 1,000 mg PO BID #14 tablet 09/21/19 Unknown Rx metroNIDAZOLE [Flagyl] 500 mg PO Q12HR #14 tab 09/21/19 Unknown Rx Erythromycin [Erythromycin Ophth 1 applicatio OS QID 7 Days #1 tube 01/23/20 Unknown Rx Oint] HYDROcodone/APAP 5-325 [[place] 1 each PO Q6HR PRN #10 tablet 01/23/20 Unknown Rx 5/325] Ibuprofen [Motrin 600 MG tab] 600 mg PO Q8H PRN #14 tablet 01/23/20 Unknown Rx HYDROcodone/APAP 5-325 [[place] 1 each PO Q6HR PRN #12 tablet 07/13/20 Unknown Rx 5/325] Fluconazole [Diflucan TAB] 200 mg PO ONCE #1 tablet 10/25/20 Unknown Rx Ibuprofen [Motrin 800 MG tab] 800 mg PO Q8HR PRN #30 tablet 10/25/20 Unknown Rx levoFLOXacin [Levaquin TAB] 500 mg PO QDAY #10 tablet 10/25/20 Unknown Rx Allergies Allergy/AdvReac Type Severity Reaction Status Date / Time No Known Allergies Allergy Unverified 09/21/19 06:30 ED Review of Systems ROS: Stated complaint: STOMACH PAIN/BODY ACHE Other details as noted in HPI Comment: All other systems reviewed and negative Constitutional: denies: chills, fever Eyes: denies: eye pain, eye discharge, vision change ENT: denies: ear pain, throat pain Respiratory: denies: cough, shortness of breath, wheezing Cardiovascular: denies: chest pain, palpitations Gastrointestinal: abdominal pain. denies: nausea, vomiting, diarrhea, constipation, hematemesis, melena, hematochezia Genitourinary: denies: urgency, dysuria, frequency, hematuria, discharge, abnormal menses, dyspareunia Musculoskeletal: denies: back pain, joint swelling, arthralgia Skin: denies: rash, lesions, change in color, change in hair/nails, pruritus Neurological: denies: headache, weakness, numbness, paresthesias, confusion, abnormal gait, vertigo Psychiatric: denies: anxiety, depression, auditory hallucinations, visual hallucinations, homicidal thoughts, suicidal thoughts Hematological/Lymphatic: denies: easy bleeding, easy bruising ED Past Medical Hx - Past Medical History Hx Hypertension: No Hx Congestive Heart Failure: No Hx Diabetes: No Hx Deep Vein Thrombosis: No Hx Renal Disease: No Hx Sickle Cell Disease: No Hx Seizures: No Hx Asthma: No Hx COPD: No Hx HIV: No - Surgical History Additional Surgical History: 01/24/19 - Social History Smoking Status: Current Every Day Smoker Substance Use Type: None - Medications Home Medications: Home Medications Medication Instructions Recorded Confirmed Last Taken Type Ferrous Sulfate [Feosol 325 MG tab] 325 mg PO BID #60 tablet 01/24/19 Unknown Rx oxyCODONE /ACETAMINOPHEN [Percocet 1 tab PO Q6HR PRN #30 tablet 01/24/19 Unknown Rx 5/325] Ibuprofen [Motrin 600 MG tab] 1 tab PO QID PRN #15 05/17/19 Unknown Rx Ibuprofen [Motrin 600 MG tab] 600 mg PO Q8H PRN 7 Days #21 tablet 05/17/19 Unknown Rx cephALEXin [Keflex] 500 mg PO QID 10 Days #40 capsule 05/17/19 Unknown Rx oxyCODONE /ACETAMINOPHEN [Percocet 1 tab PO Q6HR PRN #10 tablet 05/17/19 Unknown Rx 5/325] oxyCODONE /ACETAMINOPHEN [Percocet 1 tab PO Q6HR PRN #10 tablet 05/17/19 Unknown Rx 5/325] Fluconazole (Nf) [Diflucan TAB] 150 mg PO ONCE #1 tablet 09/21/19 Unknown Rx HYDROcodone/APAP 5-325 [[place] 1 each PO Q4HR PRN #12 tablet 09/21/19 Unknown Rx 5/325] Sulfamethoxazole/Trimethoprim 1 each PO BID #14 tablet 09/21/19 Unknown Rx [Bactrim DS TAB] Valacyclovir HCl [Valtrex] 1,000 mg PO BID #14 tablet 09/21/19 Unknown Rx metroNIDAZOLE [Flagyl] 500 mg PO Q12HR #14 tab 09/21/19 Unknown Rx Erythromycin [Erythromycin Ophth 1 applicatio OS QID 7 Days #1 tube 01/23/20 Un known Rx Oint] HYDROcodone/APAP 5-325 [[place] 1 each PO Q6HR PRN #10 tablet 01/23/20 Unknown Rx 5/325] Ibuprofen [Motrin 600 MG tab] 600 mg PO Q8H PRN #14 tablet 01/23/20 Unknown Rx HYDROcodone/APAP 5-325 [[place] 1 each PO Q6HR PRN #12 tablet 07/13/20 Unknown Rx 5/325] Fluconazole [Diflucan TAB] 200 mg PO ONCE #1 tablet 10/25/20 Unknown Rx Ibuprofen [Motrin 800 MG tab] 800 mg PO Q8HR PRN #30 tablet 10/25/20 Unknown Rx levoFLOXacin [Levaquin TAB] 500 mg PO QDAY #10 tablet 10/25/20 Unknown Rx ED Physical Exam - General Limitations: No Limitations General appearance: alert, in no apparent distress - Head Head exam: Present: atraumatic, normocephalic, normal inspection - Eye Eye exam: Present: normal appearance, PERRL, EOMI Pupils: Present: normal accommodation - Neck Neck exam: Present: normal inspection, full ROM - Respiratory Respiratory exam: Present: normal lung sounds bilaterally. Absent: respiratory distress, wheezes, rales, rhonchi, stridor - Cardiovascular Cardiovascular Exam: Present: regular rate, normal rhythm, normal heart sounds - GI/Abdominal GI/Abdominal exam: Present: soft, distended (mild ), tenderness (diffuse), guarding (mild ) - Neurological Exam Neurological exam: Present: alert, oriented X3, CN II-XII intact, normal gait - Psychiatric Psychiatric exam: Present: normal affect, normal mood - Skin Skin exam: Present: intact ED Course Vital Signs 02/07/21 14:29 Temperature 98.0 F Pulse Rate 68 Respiratory 16 Rate Blood Pressure 124/78 [Left] O2 Sat by Pulse 100 Oximetry ED Medical Decision Making - Lab Data Result diagrams: 02/07/21 15:06 02/07/21 15:06 - Radiology Data Radiology results: report reviewed - Medical Decision Making Nurse reported to me that patient was requesting to leave because 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 Her CT abdomen and pelvis results was pending and she did not want to wait for the results. Patient signed AMA form and left prior to me being able to discuss her results with her. Critical care attestation.: If time is entered above; I have spent that time in minutes in the direct care of this critically ill patient, excluding procedure time. ED Disposition Clinical Impression: Abdominal pain, Enteritis Disposition: LEFT AGAINST MEDICAL ADVICE Is pt being admited?: No Does the pt Need Aspirin: No Condition: Stable Instructions: Abdominal Pain (ED) Referrals: PRIMARY CARE, [Primary Care Provider] - 3-5 Days Forms: AMA Form
[2021-02-07 15:33] LABS: Basophils # (Auto) 0.1 K/mm3 (0.0-0.1); Basophils % (Auto) 1.2 % (0.0-1.8); Eosinophils # (Auto) 0.2 K/mm3 (0.0-0.4); Eosinophils % (Auto) 3.2 % (0.0-4.3); Hemoglobin 10.5 gm/dl (10.1-14.3); Lymphocytes # (Auto) 3.3 K/mm3 (1.2-5.4); Monocytes # (Auto) 0.4 K/mm3 (0.0-0.8)
[2021-02-07 15:39] LABS: Hematocrit 33.3 % (30.3-42.9); Mean Corpuscular HGB Conc 33 % (30-34); Mean Corpuscular Volume 80 fl (79-97); Platelet Count 411 K/mm3 (140-440); Red Blood Count 4.17 M/mm3 (3.65-5.03); Red Cell Distribution Width 18.1 % (13.2-15.2)
[2021-02-07 15:53] LABS: Bilirubin,Urine NEG (Negative); Blood,Urine NEG (Negative); Color,Urine Straw (Yellow); Mucus,Urine FEW /HPF; Protein,Urine <15 mg/dL mg/dL (Negative); Urobilinogen,Urine < 2.0 mg/dL (<2.0)
[2021-02-07 15:57] LABS: Alanine Aminotransferase 11 units/L (7-56); Albumin 4.4 g/dL (3.9-5); Blood Urea Nitrogen 9 mg/dL (7-17); Calcium 9.4 mg/dL (8.4-10.2); Hemolysis Index 2
[2021-02-07 15:59] LABS: BUN/Creatinine Ratio 18; Bilirubin,Direct < 0.2 mg/dL (0-0.2)
--- NOTE | 2021-02-07 16:56 | Cat Scan Report ---
CT ABDOMEN AND PELVIS WITH CONTRAST INDICATION / CLINICAL INFORMATION: Diffuse abdominal pain and distention. TECHNIQUE: Axial CT images were obtained through the abdomen and pelvis after 100 cc Omnipaque [address] scans at this location are performed using CT dose reduction for ALARA by means of automated exposure control. COMPARISON: CT abdomen and pelvis without contrast from 10/25/2020. FINDINGS: LOWER CHEST: No significant abnormality. LIVER: No significant abnormality. GALLBLADDER/BILE DUCTS: No significant abnormality. PANCREAS: No significant abnormality. SPLEEN: No significant abnormality. ADRENALS: No significant abnormality. KIDNEYS / URETERS: No significant abnormality. STOMACH / SMALL BOWEL: No significant abnormality of the stomach. Mild wall thickening is noted throu ghout the duodenum and along the proximal/mid jejunum. No significant dilatation or other significant abnormalities. COLON: No significant abnormality. APPENDIX: No significant abnormality. PERITONEUM: No free fluid. No free air. No fluid collection. LYMPH NODES: No significant adenopathy. AORTA / ARTERIES: No significant abnormality. IVC / VEINS: No significant abnormality. URINARY BLADDER: No significant abnormality. REPRODUCTIVE ORGANS: No significant abnormality. ADDITIONAL FINDINGS: None. BONES: No significant abnormality. IMPRESSION: Suspected enteritis as above without an associated complication. Signer Name: Scooter Ernst MD Signed: 02/07/2021 4:51 PM Workstation Name: [id number]
== END 2021-02-07 16:51 | disposition left against medical advice (07) ==
LOC: ED 13:04
DX: K52.9 Noninfective gastroenteritis and colitis, unspecified (principal); F17.200 Nicotine dependence, unspecified, uncomplicated
CPT/HCPCS: 36415; 74177; 80048; 80076; 81001; 83690; 84703; 85025; 96361; 96374; 96375; 99284; J2270; J2405; J7030; Q9967

== ENCOUNTER 2021-07-14 14:53 | Emergency (ER) | payer MEDICAID ==
[2021-07-14 16:57] LABS: HCG Qualitative,Urine Negative (Negative)
[2021-07-14 17:03] LABS: Bilirubin,Urine NEG (Negative); Blood,Urine NEG (Negative); Color,Urine Colorless (Yellow); Protein,Urine <15 mg/dL mg/dL (Negative); Urobilinogen,Urine < 2.0 mg/dL (<2.0)
[2021-07-14] MEDS ORDERED: cephALEXin 500 MG CAP PO ONE (17:29)
[2021-07-14] MEDS ORDERED: KETOROLAC 10 MG TAB PO ONE (17:29)
--- NOTE | 2021-07-14 17:31 | Emergency Department Report ---
ED Female HPI - General Chief complaint: Abdominal Pain Stated complaint: UTI/ABD PAIN Time Seen by Provider: 07/14/21 16:43 Source: patient Mode of arrival: Ambulatory Limitations: No Limitations - History of Present Illness Initial comments: 21-year-old black female with no past medical history presents to the emergency department for evaluation of few week history of lower abdominal pain and back pain. She states that she has been having these symptoms for several weeks and has been taking her mom's Percocet that has improved the pain but the pain keeps coming back. She denies fever, nausea, vomiting, diarrhea, vaginal discharge, and dysuria. MD Complaint: pelvic pain -: Gradual, week(s) (Several) Location: suprapubic, LLQ, RLQ Radiation: non-radiating Severity: severe Severity scale (0 -10): 8 Quality: cramping, aching Consistency: intermittent Are you Now?: No Associated Symptoms: abdominal pain. denies: vaginal discharge, vaginal bleeding, nausea/vomiting, fever/chills, headaches, loss of appetite, dysuria, hematuria, rash, seizure, shortness of breath, syncope, weakness - Related Data Sexually active: Yes Previous Rx's Medication Instructions Recorded Last Taken Type Ferrous Sulfate [Feosol 325 MG tab] 325 mg PO BID #60 tablet 01/24/19 Unknown Rx oxyCODONE /ACETAMINOPHEN [Percocet 1 tab PO Q6HR PRN #30 tablet 01/24/19 Unknown Rx 5/325] Ibuprofen [Motrin 600 MG tab] 1 tab PO QID PRN #15 05/17/19 Unknown Rx Ibuprofen [Motrin 600 MG tab] 600 mg PO Q8H PRN 7 Days #21 tablet 05/17/19 Unknown Rx cephALEXin [Keflex] 500 mg PO QID 10 Days #40 capsule 05/17/19 Unknown Rx oxyCODONE /ACETAMINOPHEN [Percocet 1 tab PO Q6HR PRN #10 tablet 05/17/19 Unknown Rx 5/325] oxyCODONE /ACETAMINOPHEN [Percocet 1 tab PO Q6HR PRN #10 tablet 05/17/19 Unknown Rx 5/325] Fluconazole (Nf) [Diflucan TAB] 150 mg PO ONCE #1 tablet 09/21/19 Unknown Rx HYDROcodone/APAP 5-325 [[place] 1 each PO Q4HR PRN #12 tablet 09/21/19 Unknown Rx 5/325] Sulfamethoxazole/Trimethoprim 1 each PO BID #14 tablet 09/21/19 Unknown Rx [Bactrim DS TAB] Valacyclovir HCl [Valtrex] 1,000 mg PO BID #14 tablet 09/21/19 Unknown Rx metroNIDAZOLE [Flagyl] 500 mg PO Q12HR #14 tab 09/21/19 Unknown Rx Erythromycin [Erythromycin Ophth 1 applicatio OS QID 7 Days #1 tube 01/23/20 Unknown Rx Oint] HYDROcodone/APAP 5-325 [[place] 1 each PO Q6HR PRN #10 tablet 01/23/20 Unknown Rx 5/325] Ibuprofen [Motrin 600 MG tab] 600 mg PO Q8H PRN #14 tablet 01/23/20 Unknown Rx HYDROcodone/APAP 5-325 [[place] 1 each PO Q6HR PRN #12 tablet 07/13/20 Unknown Rx 5/325] Fluconazole [Diflucan TAB] 200 mg PO ONCE #1 tablet 10/25/20 Unknown Rx Ibuprofen [Motrin 800 MG tab] 800 mg PO Q8HR PRN #30 tablet 10/25/20 Unknown Rx levoFLOXacin [Levaquin TAB] 500 mg PO QDAY #10 tablet 10/25/20 Unknown Rx Naproxen [Naprosyn] 500 mg PO BID #14 tab 07/14/21 Unknown Rx cephALEXin [Keflex] 500 mg PO Q12HR #14 cap 07/14/21 Unknown Rx Allergies Allergy/AdvReac Type Severity Reaction Status Date / Time No Known Allergies Allergy Unverified 09/21/19 06:30 ED Review of Systems ROS: Stated complaint: UTI/ABD PAIN Other details as noted in HPI Comment: All other systems reviewed and negative Constitutional: denies: chills, diaphoresis, fever, malaise, weakness Eyes: denies: eye pain, eye discharge ENT: denies: ear pain, throat pain Respiratory: denies: cough, orthopnea, shortness of breath Cardiovascular: denies: chest pain, palpitations, dyspnea on exertion, orthopnea, edema, syncope Endocrine: no symptoms reported Gastrointestinal: abdominal pain. denies: nausea, vomiting, diarrhea, constipation, hematemesis, melena, hematochezia Genitourinary: denies: urgency, dysuria, frequency, hematuria, discharge, abnormal menses, dyspareunia Musculoskeletal: back pain. denies: joint swelling, arthralgia, myalgia Skin: denies: rash, lesions Neurological: denies: headache, weakness, numbness, paresthesias, confusion Psychiatric: denies: anxiety, depression Hematological/Lymphatic: denies: easy bleeding, easy bruising ED Past Medical Hx - Past Medical History Hx Hypertension: No Hx Congestive Heart Failure: No Hx Diabetes: No Hx Deep Vein Thrombosis: No Hx Renal Disease: No Hx Sickle Cell Disease: No Hx Seizures: No Hx Asthma: No Hx COPD: No Hx HIV: No - Surgical History Additional Surgical History: 01/24/19 - Social History Smoking Status: Current Every Day Smoker Substance Use Type: None - Medications Home Medications: Home Medications Medication Instructions Recorded Confirmed Last Taken Type Ferrous Sulfate [Feosol 325 MG tab] 325 mg PO BID #60 tablet 01/24/19 Unknown Rx oxyCODONE /ACETAMINOPHEN [Percocet 1 tab PO Q6HR PRN #30 tablet 01/24/19 Unknown Rx 5/325] Ibuprofen [Motrin 600 MG tab] 1 tab PO QID PRN #15 05/17/19 Unknown Rx Ibuprofen [Motrin 600 MG tab] 600 mg PO Q8H PRN 7 Days #21 tablet 05/17/19 Unknown Rx cephALEXin [Keflex] 500 mg PO QID 10 Days #40 capsule 05/17/19 Unknown Rx oxyCODONE /ACETAMINOPHEN [Percocet 1 tab PO Q6HR PRN #10 tablet 05/17/19 Unknown Rx 5/325] oxyCODONE /ACETAMINOPHEN [Percocet 1 tab PO Q6HR PRN #10 tablet 05/17/19 Unk nown Rx 5/325] Fluconazole (Nf) [Diflucan TAB] 150 mg PO ONCE #1 tablet 09/21/19 Unknown Rx HYDROcodone/APAP 5-325 [[place] 1 each PO Q4HR PRN #12 tablet 09/21/19 Unknown Rx 5/325] Sulfamethoxazole/Trimethoprim 1 each PO BID #14 tablet 09/21/19 Unknown Rx [Bactrim DS TAB] Valacyclovir HCl [Valtrex] 1,000 mg PO BID #14 tablet 09/21/19 Unknown Rx metroNIDAZOLE [Flagyl] 500 mg PO Q12HR #14 tab 09/21/19 Unknown Rx Erythromycin [Erythromycin Ophth 1 applicatio OS QID 7 Days #1 tube 01/23/20 Unknown Rx Oint] HYDROcodone/APAP 5-325 [[place] 1 each PO Q6HR PRN #10 tablet 01/23/20 Unknown Rx 5/325] Ibuprofen [Motrin 600 MG tab] 600 mg PO Q8H PRN #14 tablet 01/23/20 Unknown Rx HYDROcodone/APAP 5-325 [[place] 1 each PO Q6HR PRN #12 tablet 07/13/20 Unknown Rx 5/325] Fluconazole [Diflucan TAB] 200 mg PO ONCE #1 tablet 10/25/20 Unknown Rx Ibuprofen [Motrin 800 MG tab] 800 mg PO Q8HR PRN #30 tablet 10/25/20 Unknown Rx levoFLOXacin [Levaquin TAB] 500 mg PO QDAY #10 tablet 10/25/20 Unknown Rx Naproxen [Naprosyn] 500 mg PO BID #14 tab 07/14/21 Unknown Rx cephALEXin [Keflex] 500 mg PO Q12HR #14 cap 07/14/21 Unknown Rx ED Physical Exam - General Limitations: No Limitations General appearance: alert, in no apparent distress - Head Head exam: Present: atraumatic, normocephalic - Eye Eye exam: Present: normal appearance. Absent: conjunctival injection - Neck Neck exam: Present: normal inspection. Absent: tenderness - Respiratory Respiratory exam: Present: normal lung sounds bilaterally. Absent: respiratory distress, wheezes, rales, rhonchi, stridor, chest wall tenderness, accessory muscle use - Cardiovascular Cardiovascular Exam: Present: regular rate, normal heart sounds - GI/Abdominal GI/Abdominal exam: Present: soft, normal bowel sounds. Absent: distended, tenderness, guarding, rebound, rigid - Extremities Exam Extremities exam: Present: normal inspection, full ROM - Back Exam Back exam: Present: normal inspection, full ROM, CVA tenderness (R), CVA tenderness (L). Absent: tenderness, muscle spasm, paraspinal tenderness, vertebral tenderness - Neurological Exam Neurological exam: Present: alert - Psychiatric Psychiatric exam: Present: normal affect, normal mood - Skin Skin exam: Present: warm, dry, intact, normal color ED Course Vital Signs 07/14/21 07/14/21 07/14/21 16:01 17:55 18:17 Temperature 98.5 F 98.6 F Pulse Rate 91 H 82 Respiratory 16 18 18 Rate Blood Pressure 131/77 124/84 [Left] O2 Sat by Pulse 100 98 Oximetry ED Medical Decision Making - Medical Decision Making 21-year-old black female with no past medical history presents to the emergency department for evaluation of few week history of lower abdominal pain and back pain. She states that she has been having these symptoms for several weeks and has been taking her mom's Percocet that has improved the pain but the pain keeps coming back. She denies fever, nausea, vomiting, diarrhea, vaginal discharge, and dysuria. Urine analysis positive for leukocyte Estrace. Patient will be treated for urinary tract infection with Keflex 500 mg twice daily for 7 days. She was advised take medication as prescribed drink plenty of noncaffeinated fluids, and follow-up with primary care provider if no improvement. She was advised to return to the emergency department if no improvement or worsening symptoms. She verbalized understanding of and agreement with plan of care. Critical care attestation.: If time is entered above; I have spent that time in minutes in the direct care of this critically ill patient, excluding procedure time. ED Disposition Clinical Impression: UTI (urinary tract infection) Qualifiers: Urinary tract infection type: acute cystitis Hematuria presence: without hematuria Qualified Code(s): N30.00 - Acute cystitis without hematuria Disposition: 01 HOME / SELF CARE / HOMELESS Is pt being admited?: No Does the pt Need Aspirin: No Condition: Stable Instructions: Urinary Tract Infection, Adult, [id number], Abdominal Pain (ED) Additional Instructions: Take medications as prescribed. Drink plenty of noncaffeinated fluids. Follow- up with primary care provider if no improvement or worsening symptoms. Prescriptions: cephALEXin [Keflex] 500 mg PO Q12HR #14 cap Naproxen [Naprosyn] 500 mg PO BID #14 tab Referrals: RENETTA DE LA CRUZ MD [Referring] - 3-5 Days Time of Disposition: 17:31
[2021-07-14 18:18] VITALS: BP 124/84
== END 2021-07-14 18:18 | disposition home or self-care (01) ==
LOC: ED 14:53
DX: N39.0 Urinary tract infection, site not specified (principal); Z98.890 Other specified postprocedural states; F17.200 Nicotine dependence, unspecified, uncomplicated
CPT/HCPCS: 81001; 81025; 99283

== ENCOUNTER 2021-08-01 12:15 | Emergency (ER) | payer MEDICAID | END 2021-08-02 02:54 | disposition home or self-care (01) | LOC: ED 12:15 | DX: Z04.1 Encounter for examination and observation following transport accident (principal); Z53.21 Procedure and treatment not carried out due to patient leaving prior to being seen by health care provider ==

== ENCOUNTER 2021-08-16 02:09 | Emergency (ER) | payer MEDICAID ==
[2021-08-16 02:22] VITALS: BP 138/96
[2021-08-16 03:15] LABS: Bacteria,Urine 1+ /HPF (Negative); Bilirubin,Urine NEG (Negative); Blood,Urine LG (Negative); Color,Urine Straw (Yellow); Mucus,Urine FEW /HPF; Protein,Urine <15 mg/dL mg/dL (Negative); Urobilinogen,Urine < 2.0 mg/dL (<2.0)
[2021-08-16 03:17] LABS: RBC,Urine > 182.0 /HPF (0.0-6.0)
== END 2021-08-16 03:00 | disposition left against medical advice (07) ==
LOC: ED 02:09
DX: R31.9 Hematuria, unspecified (principal); R10.9 Unspecified abdominal pain; Z53.21 Procedure and treatment not carried out due to patient leaving prior to being seen by health care provider
CPT/HCPCS: 81001; 87086